=== PATIENT | male | born 1940 | race Caucasian/White ===

== ENCOUNTER 2017-09-20 06:52 | Day surgery (SDC) | payer MEDICARE, BC ==
[2017-09-20] MEDS ORDERED: Lactated Ringers 1,000 ML IV SCH (07:30)
[2017-09-20] MEDS ORDERED: fentaNYL 100 MCG/2 ML SDV ONE (08:16)
[2017-09-20] MEDS ORDERED: Propofol 200 MG/20 ML SDV ONE (08:16)
--- NOTE | 2017-09-20 12:18 | OR ---
DATE OF PROCEDURE: 09/20/2017 PREOPERATIVE DIAGNOSIS: History of colon polyps. POSTOPERATIVE DIAGNOSES: 1. Diverticulosis. 2. History of colon polyps. PROCEDURE: Colonoscopy to the cecum. SURGEON: Min Nolan MD. ANESTHESIA: IV anesthesia with monitored anesthesia care. INDICATION: This 77-year-old white male is here for a colonoscopy because of a history of colon polyps. He says his last colonoscopic exam was done about five years ago. I counseled him for the procedure, including risks and alternatives, and he gave his informed consent to proceed. DESCRIPTION OF PROCEDURE: The patient was placed in the left lateral decubitus position. IV anesthesia was administered by the Anesthesia Service. Time-out was held. A rectal exam was performed, which was unremarkable, except for no palpable prostate which he has had removed. The flexible video Olympus colonoscope was introduced through his anus , up his rectum and out his colon, all the way to the cecum. En route, we saw multiple, some quite large, left- sided diverticula. There were also a few rare one on the right side. Once the cecum was reached, the scope was slowly withdrawn, examining the mucosa throughout. No additional mucosal abnormalities were noted. No neoplastic lesions were seen. The scope was retroflexed in the rectum with the distal rectum appearing unremarkable. The scope was straightened and removed. He tolerated the procedure well. Recommend repeat colonoscopy in five years. Min Nolan MD /[id number] MTDD
== END 2017-09-20 10:30 | disposition home or self-care (01) ==
LOC: JP.SDS 06:52
PROVIDERS: ATTEND Surgery
DX: Z12.11 Encounter for screening for malignant neoplasm of colon (principal); K57.30 Diverticulosis of large intestine without perforation or abscess without bleeding; I10 Essential (primary) hypertension; E11.9 Type 2 diabetes mellitus without complications; E03.9 Hypothyroidism, unspecified; Z86.010 Personal history of colon polyps; Z87.891 Personal history of nicotine dependence
CPT/HCPCS: G0121; J2704; J3010; J7120

== ENCOUNTER 2019-02-22 10:22 | Emergency (ER) | payer MEDICARE, BC ==
[2019-02-22] MEDS ORDERED: Sodium Chloride 0.9% 1,000 ML IV STA (11:09)
[2019-02-22] MEDS ORDERED: Sodium Chloride 0.9% 10 ML Syringe FLUSH PRN (11:09)
--- NOTE | 2019-02-22 11:12 | EDM.PDOC ---
ED HPI GENERAL MEDICAL PROBLEM - General Chief Complaint: Genitourinary Problem Stated Complaint: BLOOD IN URINE Time Seen by Provider: 02/22/19 11:02 Source of Information: Reports: Patient, Family, RN Notes Reviewed History Limitations: Reports: No Limitations - History of Present Illness INITIAL COMMENTS - FREE TEXT/NARRATIVE: 8-year-old gentleman presents emergency department today complaint of bright red blood per urine, he states he has had microscopic hematuria in the past does have a follow-up appointment with urology at the end of this month does have a history of prostate cancer. This morning he started passing bright red blood with clots in his urine denies any other symptoms - Related Data Allergies Allergy/AdvReac Type Severity Reaction Status Date / Time No Known Allergies Allergy Verified 02/22/19 10:51 Home Meds: Home Meds Albuterol [Ventolin HFA] 1 - 2 puff IH Q4HR PRN 09/16/17 [History] Ammonium Lactate [Lac-Hydrin 12% Crm] 1 dose TOP BID 09/16/17 [History] Aspirin [Adult Low Dose Aspirin EC] 81 mg PO DAILY 09/16/17 [History] Calcium Carbonate [Calcium] 500 mg PO DAILY 09/16/17 [History] Cholecalciferol (Vitamin D3) [Vitamin D3] 2,000 units PO DAILY 09/16/17 [History ] Fluticasone Propionate [Flonase] 1 spray RANDY DAILY 09/16/17 [History] Glimepiride [Amaryl] 2 mg PO DAILY 09/16/17 [History] Glucosamine [Glucosamine Sulfate] 500 mg PO BID 09/16/17 [History] Levothyroxine [Synthroid] 50 mcg PO DAILY 09/16/17 [History] Losartan [Cozaar] 100 mg PO DAILY 09/16/17 [History] Multivitamin [Multi-Vitamin Daily] 1 cap PO DAILY 09/16/17 [History] Potassium Chloride 10 meq PO DAILY 09/16/17 [History] Simvastatin [Zocor] 20 mg PO DAILY 09/16/17 [History] amLODIPine [Norvasc] 5 mg PO DAILY 09/16/17 [History] hydroCHLOROthiazide [Hydrochlorothiazide] 25 mg PO BID 09/16/17 [History] metFORMIN [Glucophage] 500 mg PO BID 09/16/17 [History] Past Medical History HEENT History: Reports: Impaired Vision, Sinusitis Other HEENT History: wears glasses Cardiovascular History: Reports: Hypertension, SOB on Exertion Gastrointestinal History: Reports: Chronic Diarrhea, Colon Polyp Genitourinary History: Reports: Prostate Disorder, Urinary Incontinence, Other ( See Below) Other Genitourinary History: blood in urine Musculoskeletal History: Reports: Neck Pain, Chronic Endocrine/Metabolic History: Reports: Diabetes, Type II, Hypothyroidism Oncologic (Cancer) History: Reports: Basal Cell Carcinoma, Prostate Dermatologic History: Reports: None - Infectious Disease History Infectious Disease History: Reports: Chicken Pox, Measles, Mumps - Past Surgical History HEENT Surgical History: Reports: Polypectomy Cardiovascular Surgical History: Reports: None GI Surgical History: Reports: Cholecystectomy, Colonoscopy, Polypectomy Male Surgical History: Reports: Prostatectomy Endocrine Surgical History: Reports: None Musculoskeletal Surgical History: Reports: Shoulder Surgery, Other (See Below) Other Musculoskeletal Surgeries/Procedures:: neck fracture Oncologic Surgical History: Reports: Other (See Below) Other Oncologic Surgeries/Procedures: prostatectomy; skin biopsy/excision Dermatological Surgical History: Reports: Skin Biopsy Social & Family History - Family History Oncologic: Reports: Colon - Tobacco Use Smoking Status *Q: Former Smoker Used Tobacco, but Quit: Yes Month/Year Tobacco Last Used: 30 years - Caffeine Use Caffeine Use: Reports: Coffee - Recreational Drug Use Recreational Drug Use: No ED ROS GENERAL - Review of Systems Review Of Systems: See Below Constitutional: Reports: No Symptoms HEENT: Reports: No Symptoms Respiratory: Reports: No Symptoms Cardiovascular: Reports: No Symptoms GI/Abdominal: Reports: No Symptoms : Reports: Hematuria Musculoskeletal: Reports: No Symptoms Skin: Reports: No Symptoms Neurological: Reports: No Symptoms ED EXAM, RENAL/ - Physical Exam Exam: See Below Exam Limited By: No Limitations General Appearance: Alert, WD/WN, No Apparent Distress Respiratory/Chest: No Respiratory Distress, Lungs Clear, Normal Breath Sounds, No Accessory Muscle Use, Chest Non-Tender Cardiovascular: Regular Rate, Rhythm, No Murmur GI/Abdominal: Soft, Non-Tender Course - Vital Signs Last Recorded V/S: Last Vital Signs Temp 96.4 F 02/22/19 10:50 Pulse 67 02/22/19 10:50 Resp 14 02/22/19 10:50 BP 128/69 02/22/19 10:50 Pulse Ox 97 02/22/19 10:50 - Orders/Labs/Meds Orders: Active Orders 24 hr Category Date Time Status Peripheral IV Care [RC] . DIRECTED Care 02/22/19 11:10 Active Sodium Chloride 0.9% [Saline Flush] Med 02/22/19 11:09 Active 10 ml FLUSH ASDIRECTED PRN Peripheral IV Insertion Adult [OM.PC] Urgent Oth 02/22/19 11:09 Ordered Medication Orders Sodium Chloride (Saline Flush) 10 ml FLUSH ASDIRECTED PRN PRN Reason: Keep Vein Open Last Admin: 02/22/19 11:33 Dose: 10 ml Labs: Laboratory Tests 02/22/19 02/22/19 02/22/19 Range/Units 10:44 11:20 11:20 WBC 3.4 L (4.5-11.0) K/uL RBC 4.64 (4.30-5.90) M/uL Hgb 13.5 (12.0-15.0) g/dL Hct 41.6 (40.0-54.0) % MCV 90 (80-98) fL MCH 29 (27-31) pg MCHC 33 (32-36) % Plt Count 229 (150-400) K/uL Neut % (Auto) 56 (36-66) % Lymph % (Auto) 20 L (24-44) % Nelson % (Auto) 11 H (2-6) % Eos % (Auto) 12 H (2-4) % Baso % (Auto) 1 (0-1) % Sodium 140 (140-148) mmol/L Potassium 3.6 (3.6-5.2) mmol/L Chloride 101 (100-108) mmol/L Carbon Dioxide 28 (21-32) mmol/L Anion Gap 11.5 (5.0-14.0) mmol/L BUN 19 H (7-18) mg/dL Creatinine 0.9 (0.8-1.3) mg/dL Est Cr Clr Drug Dosing 79.54 mL/min Estimated GFR (MDRD) > 60 (>60) Glucose 154 H (74-106) mg/dL Calcium 8.9 (8.5-10.1) mg/dL Total Bilirubin 0.4 (0.2-1.0) mg/dL AST 16 (15-37) U/L ALT 28 (12-78) U/L Alkaline Phosphatase 74 (46-116) U/L Total Protein 6.8 (6.4-8.2) g/dL Albumin 3.4 (3.4-5.0) g/dL Globulin 3.4 (2.3-3.5) g/dL Albumin/Globulin Ratio 1.0 L (1.2-2.2) Urine Color Yellow (YELLOW) Urine Appearance Clear (CLEAR) Urine pH 6.0 (5.0-8.0) Ur Specific [place] 1.020 (1.008-1.030) Urine Protein Negative (NEGATIVE) mg/dL Urine Glucose (UA) Negative (NEGATIVE) mg/dL Urine Ketones Negative (NEGATIVE) mg/dL Urine Occult Blood Moderate H (NEGATIVE) Urine Nitrite Negative (NEGATIVE) Urine Bilirubin Negative (NEGATIVE) Urine Urobilinogen 0.2 (0.2-1.0) EU/dL Ur Leukocyte Esterase Negative (NEGATIVE) Urine RBC 30-40 H (0-5) Urine WBC Not seen (0-5) Ur Epithelial Cells Not seen Amorphous Sediment Not seen Urine Bacteria Not seen Urine Mucus Not seen Meds: Medications Generic Name Dose Route Start Last Admin Trade Name Freq PRN Reason Stop Dose Admin Sodium Chloride 10 ml 02/22/19 11:09 02/22/19 11:33 Saline Flush FLUSH 10 ml ASDIRECTED PRN Administration Keep Vein Open Discontinued Medications Generic Name Dose Route Start Last Admin Trade Name Freq PRN Reason Stop Dose Admin Sodium Chloride 1,000 mls @ 500 mls/hr 02/22/19 11:09 02/22/19 11:31 Normal Saline IV 02/22/19 13:08 500 mls/hr .BOLUS STA Administration Sodium Chloride 89 mls @ 3.5 mls/sec 02/22/19 11:47 02/22/19 11:56 Normal Saline IV 02/22/19 11:48 3.5 mls/sec ONETIME ONE Administration Iopamidol 150 ml 02/22/19 11:47 02/22/19 11:56 Isovue-300 (61%) IV 02/22/19 11:48 150 ml ONETIME ONE Administration Departure - Departure Time of Disposition: 13:18 Disposition: Home, Self-Care 01 Condition: Poor Clinical Impression: Hematuria syndrome, 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 - Discharge Information Referrals: Alex Ye MD [Primary Care Provider] - Forms: ED Department Discharge Additional Instructions: Please keep your follow-up appointment with your oncologist tomorrow as well as your consultation with urology, call or return to the emergency department worsening of symptoms Sepsis Event Note - Evaluation Sepsis Screening Result: No Definite Risk - Focused Exam Vital Signs: Vital Signs Temp Pulse Resp BP Pulse Ox 02/22/19 10:50 96.4 F 67 14 128/69 97 02/22/19 10:40 96.4 F 67 14 128/69 97 Date Exam was Performed: 02/22/19 Time Exam was Performed: 13:16 - My Orders Last 24 Hours: My Active Orders 02/22/19 11:09 Sodium Chloride 0.9% [Saline Flush] 10 ml FLUSH ASDIRECTED PRN Peripheral IV Insertion Adult [OM.PC] Urgent 02/22/19 11:10 Peripheral IV Care [RC] . DIRECTED - Assessment/Plan Last 24 Hours: My Active Orders 02/22/19 11:09 Sodium Chloride 0.9% [Saline Flush] 10 ml FLUSH ASDIRECTED PRN Peripheral IV Insertion Adult [OM.PC] Urgent 02/22/19 11:10 Peripheral IV Care [RC] . DIRECTED Plan: Assessment Acuity = acute Site and laterality = hematuria, lytic lesions lumbar spine complicated patient with known history of prostate cancer Etiology = possibly related to bladder wall thickening, concern for malignancy or melanoma with lytic lesions Manifestations = none Location of injury = Home Lab values = WBC low at 3.4 consistent leukopenia urinalysis reveals 30-40 WBCs consistent with a hematuria CT scan describes a lytic lesions in the bladder wall thickening above Plan I did review lab work CT scan results with him also gave him a copy of his CT scan result he does have follow-up appointment with his oncologist tomorrow and a consultation with urology at the end of the month This note was dictated using [employer] voice recognition software please call with any questions on syntax or grammar.
[2019-02-22] MEDS ORDERED: Iopamidol 500 ML BOTTLE IV ONE (11:47)
--- NOTE | 2019-02-22 12:53 | CRLCT ---
INDICATION: Hematuria COMPARISON: There are no prior studies for comparison TECHNIQUE: CT examination of the abdomen and pelvis was performed with and without the uneventful intravenous administration of 150 cc of Omnipaque 350 while 3 mm thick axial sections were obtained from the lung bases through the pubic symphysis. Oral contrast was not administered. Sagittal and coronal reformatted imaging was performed. Please note that all CT scans at this facility use dose modulation, iterative reconstruction, and/or weight-based dosing when appropriate to reduce radiation dose to as low as reasonably achievable. FINDINGS: Linear opacities at the lung bases are likely atelectatic or fibrotic. The heart size is normal and the lung bases. There is a small hiatal hernia. The liver is normal in size and configuration. A low-density lesion in the right lobe is identified. This measures 1.6 centimeters and is consistent with a cyst. Adrenal glands, spleen and pancreas show no significant appearing positive findings. The gallbladder is absent URINARY SYSTEM: The noncontrast images of the kidneys reveal no density left renal lesions but no calculus or evidence of current or recent obstructive uropathy. There is an 8 millimeter high-density lesion in the left kidney which is probably a hyperdense cyst seen on noncontrast image 48. Following contrast administration, there is no enhancement to suggest a solid lesion. There are 2 cysts on the left. An upper pole cyst measures 4.4 centimeters and a lower pole cyst measures 2.4 centimeters. On the delayed imaging, there is no filling defect identified within the upper tracts. There is bladder wall thickening without focal lesion. This is usually due to chronic cystitis or outlet obstruction. There appears to have been a prostatectomy or TURP The osseous structures are abnormal. Best appreciated on the sagittal imaging is a suggestion of multiple lytic lucencies which could be related to metastatic disease or myeloma. There are severe degenerative changes also noted IMPRESSION: 1. Scattered lytic lucencies in the skeleton worrisome for metastatic disease or myeloma. Further evaluation is advised. 2. Left renal lesions consistent with cysts. There is also 1 small subcentimeter lesion that likely represents a hyperdense cyst. No visible solid mass or filling defect related to the urothelial surfaces. 3. Bladder wall thickening likely due to either chronic inflammation or chronic bladder outlet obstruction Please note that all CT scans at this facility use dose modulation, iterative reconstruction, and/or weight-based dosing when appropriate to reduce radiation dose to as low as reasonably achievable. Dictated by Raji Sharif MD @ Feb 22 2019 12:40PM Signed by Dr. Raji Sharif @ Feb 22 2019 12:51PM
== END 2019-02-22 13:55 | disposition home or self-care (01) ==
LOC: JP.ED 10:22
DX: R31.9 Hematuria, unspecified (principal); M89.9 Disorder of bone, unspecified; I10 Essential (primary) hypertension; E03.9 Hypothyroidism, unspecified; E11.9 Type 2 diabetes mellitus without complications; Z79.84 Long term (current) use of oral hypoglycemic drugs; Z79.899 Other long term (current) drug therapy; Z79.82 Long term (current) use of aspirin
CPT/HCPCS: 36415; 74178; 80053; 81001; 85025; 96360; 96361; 99284; J7030; J7050; Q9967

== ENCOUNTER 2019-09-01 11:26 | Emergency (ER) | payer MEDICARE, BC | END 2019-09-01 12:13 | disposition left against medical advice (07) | LOC: JP.ED 11:26 | DX: Z53.21 Procedure and treatment not carried out due to patient leaving prior to being seen by health care provider (principal) ==

== ENCOUNTER 2019-11-11 21:04 | Observation (INO) | payer MEDICARE, BC ==
[2019-11-11] MEDS ORDERED: Sodium Chloride 0.9% 10 ML Syringe FLUSH PRN (21:18)
--- NOTE | 2019-11-11 21:48 | EDM.PDOC ---
ED HPI GENERAL MEDICAL PROBLEM - General Chief Complaint: Abdominal Pain Stated Complaint: [facility] Time Seen by Provider: 11/11/19 21:30 Source of Information: Reports: Patient, Old Records, RN History Limitations: Reports: No Limitations - History of Present Illness INITIAL COMMENTS - FREE TEXT/NARRATIVE: 79 yo male presents from his home via EMS for weakness and LLQ abdominal pain. Sx's began this morning. Has a pHx of diverticulitis, and this feels like that. 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 Has chronic urinary incontinence since a TURP. Onset: Today, Gradual Onset Date: 11/11/19 Duration: Hour(s):, Getting Worse Location: Reports: Abdomen (LLQ pain), Generalized (weakness) Quality: Reports: Ache Severity: Moderate Improves with: Reports: Rest Worsens with: Reports: Movement Context: Reports: Other (See HPI) Associated Symptoms: Reports: Fever/Chills. 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: Other (see below) (none) Left Lower Abdomen Pain Score (Numeric/FACES): 5 - Related Data Allergies Allergy/AdvReac Type Severity Reaction Status Date / Time No Known Allergies Allergy Verified 11/11/19 21:18 Home Meds: Home Meds Albuterol [Ventolin HFA] 1 - 2 puff IH Q4HR PRN 09/16/17 [History] Ammonium Lactate [Lac-Hydrin 12% Crm] 1 dose TOP BID 09/16/17 [History] Aspirin [Adult Low Dose Aspirin EC] 81 mg PO BEDTIME 09/16/17 [History] Calcium Carbonate [Calcium] 500 mg PO DAILY 09/16/17 [History] Cholecalciferol (Vitamin D3) [Vitamin D3] 2,000 units PO DAILY 09/16/17 [History] Fluticasone Propionate [Flonase] 2 spray RANDY DAILY 09/16/17 [History] Glimepiride [Amaryl] 2 mg PO DAILY 09/16/17 [History] Glucosamine [Glucosamine Sulfate] 500 mg PO BID 09/16/17 [History] Levothyroxine [Synthroid] 50 mcg PO DAILY 09/16/17 [History] Losartan [Cozaar] 100 mg PO DAILY 09/16/17 [History] Multivitamin [Multi-Vitamin Daily] 1 cap PO DAILY 09/16/17 [History] Simvastatin [Zocor] 20 mg PO DAILY 09/16/17 [History] amLODIPine [Norvasc] 5 mg PO BEDTIME 09/16/17 [History] hydroCHLOROthiazide [Hydrochlorothiazide] 25 mg PO BID 09/16/17 [History] metFORMIN [Glucophage] 500 mg PO BID 09/16/17 [History] Acyclovir 400 mg PO BID 11/11/19 [History] Lenalidomide [Revlimid] 25 mg PO DAILY 11/11/19 [History] Oxybutynin Chloride [Oxybutynin Chloride ER] 10 mg PO DAILY 11/11/19 [History] Potassium Chloride [Klor-Con 10] 10 meq PO DAILY 11/11/19 [History] Sulfamethoxazole/Trimethoprim [Bactrim 400-80 MG] 1 tab PO ASDIRECTED 11/11/19 [History] Warfarin [Coumadin] 10 mg PO DAILY 11/11/19 [History] Past Medical History HEENT History: Reports: Impaired Vision, Sinusitis Other HEENT History: wears glasses Cardiovascular History: Reports: Hypertension, SOB on Exertion, Other (See Below) Other Cardiovascular History: blood clot behind r knee. Gastrointestinal History: Reports: Chronic Diarrhea, Colon Polyp Genitourinary History: Reports: Prostate Disorder, Urinary Incontinence, Other (See Below) Other Genitourinary History: blood in urine No bladder control Musculoskeletal History: Reports: Neck Pain, Chronic Psychiatric History: Reports: Depression Endocrine/Metabolic History: Reports: Diabetes, Type II, Hypothyroidism Oncologic (Cancer) History: Reports: Basal Cell Carcinoma, Prostate Dermatologic History: Reports: None - Infectious Disease History Infectious Disease History: Reports: Chicken Pox, Measles, Mumps - Past Surgical History HEENT Surgical History: Reports: Polypectomy Cardiovascular Surgical History: Reports: None GI Surgical History: Reports: Cholecystectomy, Colonoscopy, Polypectomy Male Surgical History: Reports: Prostatectomy, Other (See Below) Other Male Surgeries/Procedures: Bladder scraping BCG procedure. Endocrine Surgical History: Reports: None Musculoskeletal Surgical History: Reports: Shoulder Surgery, Other (See Below) Other Musculoskeletal Surgeries/Procedures:: neck fracture Oncologic Surgical History: Reports: Other (See Below) Other Oncologic Surgeries/Procedures: prostatectomy; skin biopsy/excision Dermatological Surgical History: Reports: Skin Biopsy Social & Family History - Family History Oncologic: Reports: Colon - Tobacco Use Smoking Status *Q: Former Smoker Years of Tobacco use: 40 Packs/Tins Daily: 1 Used Tobacco, but Quit: Yes Month/Year Tobacco Last Used: 40 years ago Second Hand Smoke Exposure: No - Caffeine Use Caffeine Use: Reports: Soda - Alcohol Use Days Per Week of Alcohol Use: 0 - Recreational Drug Use Recreational Drug Use: No ED ROS GENERAL - Review of Systems Review Of Systems: See Below Constitutional: Reports: No Symptoms HEENT: Reports: No Symptoms Respiratory: Reports: No Symptoms Cardiovascular: Reports: No Symptoms Endocrine: Reports: No Symptoms GI/Abdominal: Reports: Abdominal Pain : Reports: Incontinence (chronic) Skin: Reports: No Symptoms Neurological: Reports: No Symptoms ED EXAM, GI/ABD - Physical Exam Exam: See Below Exam Limited By: No Limitations General Appearance: Alert, WD/WN, No Apparent Distress Eyes: Bilateral: Normal Appearance Ears: Normal External Exam, Normal Canal, Hearing Grossly Normal Nose: Normal Inspection, No Blood Throat/Mouth: Normal Inspection, Normal Lips, Normal Oropharynx, Normal Voice, No Airway Compromise Head: Atraumatic, Normocephalic Neck: Normal Inspection Respiratory/Chest: No Respiratory Distress, Lungs Clear, Normal Breath Sounds, No Accessory Muscle Use Cardiovascular: Regular Rate, Rhythm, No Edema GI/Abdominal Exam: Soft, No Distention, Guarding, Rebound, Tender (LLQ), Abnormal Bowel Sounds (decreased). No: Normal Bowel Sounds, Non-Tender, Dist ended, Rigid Back Exam: Normal Inspection. No: CVA Tenderness (R), CVA Tenderness (L) Extremities: Normal Inspection, Normal Range of Motion, Non-Tender, No Pedal Edema Neurological: Alert, Oriented, CN II-XII Intact, Normal Cognition, No Motor/Sensory Deficits Psychiatric: Normal Affect, Normal Mood Skin Exam: Warm, Dry, Intact, Normal Color, No Rash Course - Vital Signs Text/Narrative:: Dr. Maciel paged @0028h Last Recorded V/S: Last Vital Signs Temp 37.2 C 11/11/19 23:20 Pulse 69 11/11/19 23:20 Resp 16 11/11/19 23:20 BP 123/56 L 11/11/19 23:20 Pulse Ox 95 11/11/19 23:20 - Orders/Labs/Meds Orders: Active Orders 24 hr Category Date Time Status CULTURE BLOOD [BC] Stat Lab 11/11/19 22:05 Received CULTURE BLOOD [BC] Stat Lab 11/11/19 22:15 Received NS + KCl 20mEq/L [Normal Saline with 20 mEq KCl] 1,000 Med 11/11/19 22:00 Active ml IV ASDIRECTED Sodium Chloride 0.9% [Normal Saline] 100 ml Med 11/11/19 23:15 Active IV ASDIRECTED Sodium Chloride 0.9% [Saline Flush] Med 11/11/19 21:18 Active 10 ml FLUSH ASDIRECTED PRN Saline Lock Insert [OM.PC] Routine Oth 11/11/19 21:18 Ordered Medication Orders Potassium Chloride/Sodium Chloride (Normal Saline With 20 Meq Kcl) 1,000 mls @ 500 mls/hr IV ASDIRECTED TREVOR Last Admin: 11/11/19 22:04 Dose: 500 mls/hr Documented by: MAYRA Sodium Chloride (Normal Saline) 100 mls @ 3 mls/sec IV ASDIRECTED TREVOR Last Admin: 11/11/19 23:55 Dose: 3 mls/sec Documented by: CORINNA Sodium Chloride (Saline Flush) 10 ml FLUSH ASDIRECTED PRN PRN Reason: Keep Vein Open Labs: Laboratory Tests 11/11/19 11/11/19 11/11/19 Range/Units 21:18 21:35 21:35 WBC 10.9 (4.5-11.0) K/uL RBC 4.30 (4.30-5.90) M/uL Hgb 12.2 (12.0-15.0) g/dL Hct 37.5 L (40.0-54.0) % MCV 87 (80-98) fL MCH 28 (27-31) pg MCHC 33 (32-36) % Plt Count 206 (150-400) K/uL PT (9.5-12.0) sec INR (0.80-1.20) Sodium 136 L (140-148) mmol/L Potassium 3.4 L (3.6-5.2) mmol/L Chloride 99 L (100-108) mmol/L Carbon Dioxide 24 (21-32) mmol/L Anion Gap 16.4 H (5.0-14.0) mmol/L BUN 20 H (7-18) mg/dL Creatinine 1.5 H D (0.8-1.3) mg/dL Est Cr Clr Drug Dosing 48.22 mL/min Estimated GFR (MDRD) 45 L (>60) Glucose 197 H (74-106) mg/dL Lactic Acid 2.3 H (0.4-2.0) mmol/L Calcium 8.3 L (8.5-10.1) mg/dL Urine Color (YELLOW) Urine Appearance (CLEAR) Urine pH (5.0-8.0) Ur Specific [place] (1.008-1.030) Urine Protein (NEGATIVE) mg/dL Urine Glucose (UA) (NEGATIVE) mg/dL Urine Ketones (NEGATIVE) mg/dL Urine Occult Blood (NEGATIVE) Urine Nitrite (NEGATIVE) Urine Bilirubin (NEGATIVE) Urine Urobilinogen (0.2-1.0) EU/dL Ur Leukocyte Esterase (NEGATIVE) Urine RBC (0-5) Urine WBC (0-5) Ur Epithelial Cells Amorphous Sediment Urine Bacteria Urine Mucus 11/11/19 11/12/19 Range/Units 23:12 00:52 WBC (4.5-11.0) K/uL RBC (4.30-5.90) M/uL Hgb (12.0-15.0) g/dL Hct (40.0-54.0) % MCV (80-98) fL MCH (27-31) pg MCHC (32-36) % Plt Count (150-400) K/uL PT 21.1 H (9.5-12.0) sec INR 1.96 H (0.80-1.20) Sodium (140-148) mmol/L Potassium (3.6-5.2) mmol/L Chloride (100-108) mmol/L Carbon Dioxide (21-32) mmol/L Anion Gap (5.0-14.0) mmol/L BUN (7-18) mg/dL Creatinine (0.8-1.3) mg/dL Est Cr Clr Drug Dosing mL/min Estimated GFR (MDRD) (>60) Glucose (74-106) mg/dL Lactic Acid (0.4-2.0) mmol/L Calcium (8.5-10.1) mg/dL Urine Color Circle A (YELLOW) Urine Appearance Clear (CLEAR) Urine pH 5.5 (5.0-8.0) Ur Specific [place] 1.025 (1.008-1.030) Urine Protein 100 H (NEGATIVE) mg/dL Urine Glucose (UA) Negative (NEGATIVE) mg/dL Urine Ketones Trace H (NEGATIVE) mg/dL Urine Occult Blood Trace-intact H (NEGATIVE) Urine Nitrite Positive H (NEGATIVE) Urine Bilirubin Moderate H (NEGATIVE) Urine Urobilinogen 1.0 (0.2-1.0) EU/dL Ur Leukocyte Esterase Negative (NEGATIVE) Urine RBC 0-5 (0-5) Urine WBC 0-5 (0-5) Ur Epithelial Cells Few Amorphous Sediment Few Urine Bacteria Many Urine Mucus Moderate Meds: Medications Generic Name Dose Route Start Last Admin Trade Name Freq PRN Reason Stop Dose Admin Potassium Chloride/Sodium Chloride 1,000 mls @ 500 mls/hr 11/11/19 22:00 11/11/19 22:04 Normal Saline With 20 Meq Kcl IV 500 mls/hr ASDIRECTED TREVOR Administration Sodium Chloride 100 mls @ 3 mls/sec 11/11/19 23:15 11/11/19 23:55 Normal Saline IV 3 mls/sec ASDIRECTED TREVOR Administration Sodium Chloride 10 ml 11/11/19 21:18 Saline Flush FLUSH ASDIRECTED PRN Keep Vein Open Discontinued Medications Generic Name Dose Route Start Last Admin Trade Name Freq PRN Reason Stop Dose Admin Ampicillin Sodium/Sulbactam 50 mls @ 100 mls/hr 11/11/19 22:00 11/11/19 22:18 Sodium 1.5 gm/ Sodium Chloride IV 11/11/19 22:29 100 mls/hr ONETIME ONE Administration Iopamidol 100 ml 11/11/19 23:02 11/11/19 23:57 Isovue-300 (61%) IV 11/11/19 23:03 100 ml ONETIME ONE Administration Sodium Chloride 10 ml 11/11/19 23:02 11/11/19 23:50 Saline Flush FLUSH 11/11/19 23:03 10 ml ONETIME ONE Administration - Radiology Interpretation Free Text/Narrative:: CT abd/pelvis with IV contrast-IMPRESSION: Thickening of the junction of the descending and sigmoid colon with adjacent inflammatory stranding consistent with diverticulitis. Dictated by Denilson Craig MD @ 11/12/2019 12:24:[address] Results Date: 11/11/19 CT Results Time: 00:27 Departure - Departure Time of Disposition: 00:45 Disposition: Refer to Observation Condition: Fair Clinical Impression: Acute diverticulitis - Discharge Information *PRESCRIPTION DRUG MONITORING PROGRAM REVIEWED*: Not Applicable *COPY OF PRESCRIPTION DRUG MONITORING REPORT IN PATIENT DEEPTI: Not Applicable Referrals: PCP,None [Primary Care Provider] - Forms: ED Department Discharge Sepsis Event Note (ED) - Evaluation Sepsis Screening Result: No Definite Risk - Focused Exam Vital Signs: Vital Signs Temp Pulse Resp BP Pulse Ox 11/11/19 23:20 37.2 C 69 16 123/56 L 95 11/11/19 23:05 37.2 C 66 16 105/50 L 94 L 11/11/19 21:13 37.1 C 98 16 120/95 H 95 - My Orders Last 24 Hours: My Active Orders 11/11/19 21:18 Sodium Chloride 0.9% [Saline Flush] 10 ml FLUSH ASDIRECTED PRN Saline Lock Insert [OM.PC] Routine 11/11/19 22:00 NS + KCl 20mEq/L [Normal Saline with 20 mEq KCl] 1,000 ml IV ASDIRECTED 11/11/19 22:05 CULTURE BLOOD [BC] Stat 11/11/19 22:15 CULTURE BLOOD [BC] Stat 11/11/19 23:15 Sodium Chloride 0.9% [Normal Saline] 100 ml IV ASDIRECTED - Assessment/Plan Last 24 Hours: My Active Orders 11/11/19 21:18 Sodium Chloride 0.9% [Saline Flush] 10 ml FLUSH ASDIRECTED PRN Saline Lock Insert [OM.PC] Routine 11/11/19 22:00 NS + KCl 20mEq/L [Normal Saline with 20 mEq KCl] 1,000 ml IV ASDIRECTED 11/11/19 22:05 CULTURE BLOOD [BC] Stat 11/11/19 22:15 CULTURE BLOOD [BC] Stat 11/11/19 23:15 Sodium Chloride 0.9% [Normal Saline] 100 ml IV ASDIRECTED
[2019-11-11] MEDS ORDERED: Ampicillin/Sulbactam Na 1.5 GM in Sodium Chloride 0.9% 50 ML IV ONE (22:00)
[2019-11-11] MEDS ORDERED: NS + KCl 20mEq/L 1,000 ML IV SCH (22:00)
[2019-11-11] MEDS ORDERED: Iopamidol 612 MG/ML 500 ML Multipack Bottle IV ONE (23:02)
[2019-11-11] MEDS ORDERED: Sodium Chloride 0.9% 10 ML Syringe FLUSH ONE (23:02)
[2019-11-11] MEDS ORDERED: Sodium Chloride 0.9% 100 ML IV SCH (23:15)
--- NOTE | 2019-11-12 00:25 | CRLCT ---
INDICATION: Left lower quadrant pain, history of diverticulitis TECHNIQUE: CT abdomen and pelvis acquired with IV contrast. 100 cc Isovue-300 COMPARISON: 02/18/2019 FINDINGS: Lower chest: Unremarkable. Liver: Stable 1.0 centimeter cyst right lobe of the liver. Spleen: Unremarkable. Pancreas: Unremarkable. Cholecystectomy. Unremarkable. Kidneys: Stable left renal cyst. Adrenal glands: Unremarkable. GI tract: Thickening of the junction of the descending and sigmoid colon with adjacent inflammatory stranding consistent with diverticulitis. Diffuse colonic fecal retention. Vascular structures: Unremarkable. Lymph nodes: Unremarkable. Miscellaneous: Unremarkable. No free air or significant free fluid. Pelvic Organs: Unremarkable. Bones: Stable skeletal lucencies.. IMPRESSION: Thickening of the junction of the descending and sigmoid colon with adjacent inflammatory stranding consistent with diverticulitis. Dictated by Denilson Cragi MD @ 11/12/2019 12:24:28 AM Please note that all CT scans at this facility use dose modulation, iterative reconstruction, and/or weight-based dosing when appropriate to reduce radiation dose to as low as reasonably achievable. Dictated by: Denilson Craig MD @ 11/12/2019 00:25:00 (Electronically Signed)
--- NOTE | 2019-11-12 02:01 | PCM.HP.2 ---
H&P History of Present Illness - General Date of Service: 11/12/19 Admit Problem/Dx: Admission Diagnosis/Problem Admission Diagnosis/Problem Diverticulitis Source of Information: Patient, Provider History Limitations: Reports: No Limitations - History of Present Illness Initial Comments - Free Text/Narative: CC: I was so weak HPI: Maxwell presents to the emergency room today with weakness, left lower quadrant abdominal pain and mild confusion. He reports that he first noticed some chills just over 24 hours before presentation. This was on Wednesday night. Wednesday morning, the morning before presentation he developed a temperature to 100.4. As the day progressed he developed initially mild and then moderate sharp left lower quadrant pain. The pain radiated throughout the left side of the abdomen and was worse anytime he tried to twist or if he bumped the left si de of his abdomen. Pain was better when he laid on his back. Pain has slowly been getting worse. This afternoon he was so weak he had trouble getting out of the recliner. He was confused about time and thought it was 7:00 in the morning rather than 7:00 at night. He does not report nausea. He did not have an appetite yesterday and has not had anything to eat since yesterday morning. There has been no change in his bowel movements. No change in bladder habits and he does have chronic incontinence. No complaints of shortness of breath. No obvious sick contacts. No new medications. He does have a history of diverticulitis and this feels similar. Work-up in the emergency room revealed mild hypokalemia and stable kidney disease. White count is normal. CT scan of the abdomen and pelvis did show an area of diverticulitis in the left lower quadrant. He has been started on IV antibiotics and will be admitted for further management. Left Lower Abdomen Pain Score (Numeric/FACES): 5 - Related Data Allergies/Adverse Reactions: Allergies Allergy/AdvReac Type Severity Reaction Status Date / Time No Known Allergies Allergy Verified 11/11/19 21:18 Home Medications: Home Meds Albuterol [Ventolin HFA] 1 - 2 puff IH Q4HR PRN 09/16/17 [History] Ammonium Lactate [Lac-Hydrin 12% Crm] 1 dose TOP BID 09/16/17 [History] Aspirin [Adult Low Dose Aspirin EC] 81 mg PO BEDTIME 09/16/17 [History] Calcium Carbonate [Calcium] 500 mg PO DAILY 09/16/17 [History] Cholecalciferol (Vitamin D3) [Vitamin D3] 2,000 units PO DAILY 09/16/17 [History] Fluticasone Propionate [Flonase] 2 spray RANDY DAILY 09/16/17 [History] Glimepiride [Amaryl] 2 mg PO DAILY 09/16/17 [History] Glucosamine [Glucosamine Sulfate] 500 mg PO BID 09/16/17 [History] Levothyroxine [Synthroid] 50 mcg PO DAILY 09/16/17 [History] Losartan [Cozaar] 100 mg PO DAILY 09/16/17 [History] Multivitamin [Multi-Vitamin Daily] 1 cap PO DAILY 09/16/17 [History] Simvastatin [Zocor] 20 mg PO DAILY 09/16/17 [History] amLODIPine [Norvasc] 5 mg PO BEDTIME 09/16/17 [History] hydroCHLOROthiazide [Hydrochlorothiazide] 25 mg PO BID 09/16/17 [History] metFORMIN [Glucophage] 500 mg PO BID 09/16/17 [History] Acyclovir 400 mg PO BID 11/11/19 [History] Lenalidomide [Revlimid] 25 mg PO DAILY 11/11/19 [History] Oxybutynin Chloride [Oxybutynin Chloride ER] 10 mg PO DAILY 11/11/19 [History] Potassium Chloride [Klor-Con 10] 10 meq PO DAILY 11/11/19 [History] Sulfamethoxazole/Trimethoprim [Bactrim 400-80 MG] 1 tab PO ASDIRECTED 11/11/19 [ History] Warfarin [Coumadin] 10 mg PO DAILY 11/11/19 [History] Past Medical History HEENT History: Reports: Impaired Vision, Sinusitis Other HEENT History: wears glasses Cardiovascular History: Reports: Hypertension, SOB on Exertion, Other (See Below) Other Cardiovascular History: blood clot behind r knee. Gastrointestinal History: Reports: Chronic Diarrhea, Colon Polyp Genitourinary History: Reports: Prostate Disorder, Urinary Incontinence, Other (See Below) Other Genitourinary History: blood in urine No bladder control Musculoskeletal History: Reports: Neck Pain, Chronic Psychiatric History: Reports: Depression Endocrine/Metabolic History: Reports: Diabetes, Type II, Hypothyroidism Oncologic (Cancer) History: Reports: Basal Cell Carcinoma, Prostate Dermatologic History: Reports: None - Infectious Disease History Infectious Disease History: Reports: Chicken Pox, Measles, Mumps - Past Surgical History HEENT Surgical History: Reports: Polypectomy Cardiovascular Surgical History: Reports: None GI Surgical History: Reports: Cholecystectomy, Colonoscopy, Polypectomy Male Surgical History: Reports: Prostatectomy, Other (See Below) Other Male Surgeries/Procedures: Bladder scraping BCG procedure. Endocrine Surgical History: Reports: None Musculoskeletal Surgical History: Reports: Shoulder Surgery, Other (See Below) Other Musculoskeletal Surgeries/Procedures:: neck fracture Oncologic Surgical History: Reports: Other (See Below) Other Oncologic Surgeries/Procedures: prostatectomy; skin biopsy/excision Dermatological Surgical History: Reports: Skin Biopsy Social & Family History - Family History Oncologic: Reports: Colon (Father in his 60s) - Tobacco Use Smoking Status *Q: Former Smoker Years of Tobacco use: 40 Packs/Tins Daily: 1 Used Tobacco, but Quit: Yes Month/Year Tobacco Last Used: 40 years ago Second Hand Smoke Exposure: No - Caffeine Use Caffeine Use: Reports: Soda - Alcohol Use Days Per Week of Alcohol Use: 0 - Recreational Drug Use Recreational Drug Use: No H&P Review of Systems - Review of Systems: Review Of Systems: See Below Free Text/Narrative: A complete 12 point review of systems was obtained. Pertinent positives and negatives are noted in the history of present illness. All other systems were reviewed and were negative except as noted. Exam - Exam Exam: See Below - Vital Signs Vital Signs: Last Vital Signs Temp 37.2 C 11/11/19 23:20 Pulse 69 11/11/19 23:20 Resp 16 11/11/19 23:20 BP 123/56 L 11/11/19 23:20 Pulse Ox 95 11/11/19 23:20 Weight: 104.326 kg - Exam Quality Assessment: No: Supplemental Oxygen General: Alert, Oriented, Cooperative. No: Mild Distress HEENT: Conjunctiva Clear. No: Mucosa Moist & [place] (Dry), Scleral Icterus Neck: Supple, Trachea Midline Lungs: Clear to Auscultation, Normal Respiratory Effort Cardiovascular: Regular Rate, Regular Rhythm. No: Systolic Murmur GI/Abdominal Exam: Normal Bowel Sounds, Soft, No Distention, Guarding (Mild), Tender (Moderate tenderness left side of the abdomen especially in the lower half) Extremities: No Pedal Edema. No: Joint Swelling, Increased Warmth Peripheral Pulses: 1+: Dorsalis Pedis (L), Dorsalis Pedis (R) Skin: Warm, Dry Neuro Extensive - Mental Status: Alert, Oriented x3, Nl Response to Commands Neuro Extensive - Motor, Sensory, Reflexes: No: Dysarthria, Abnormal Motor, Tremor Psychiatric: Alert, Normal Affect - Patient Data Lab Results Last 24 hrs: Laboratory Results - last 24 hr 11/11/19 11/11/19 11/11/19 Range/Units 21:18 21:35 21:35 WBC 10.9 (4.5-11.0) K/uL RBC 4.30 (4.30-5.90) M/uL Hgb 12.2 (12.0-15.0) g/dL Hct 37.5 L (40.0-54.0) % MCV 87 (80-98) fL MCH 28 (27-31) pg MCHC 33 (32-36) % Plt Count 206 (150-400) K/uL PT (9.5-12.0) sec INR (0.80-1.20) Sodium 136 L (140-148) mmol/L Potassium 3.4 L (3.6-5.2) mmol/L Chloride 99 L (100-108) mmol/L Carbon Dioxide 24 (21-32) mmol/L Anion Gap 16.4 H (5.0-14.0) mmol/L BUN 20 H (7-18) mg/dL Creatinine 1.5 H D (0.8-1.3) mg/dL Est Cr Clr Drug Dosing 48.22 mL/min Estimated GFR (MDRD) 45 L (>60) Glucose 197 H (74-106) mg/dL Lactic Acid 2.3 H (0.4-2.0) mmol/L Calcium 8.3 L (8.5-10.1) mg/dL Urine Color (YELLOW) Urine Appearance (CLEAR) Urine pH (5.0-8.0) Ur Specific [place] (1.008-1.030) Urine Protein (NEGATIVE) mg/dL Urine Glucose (UA) (NEGATIVE) mg/dL Urine Ketones (NEGATIVE) mg/dL Urine Occult Blood (NEGATIVE) Urine Nitrite (NEGATIVE) Urine Bilirubin (NEGATIVE) Urine Urobilinogen (0.2-1.0) EU/dL Ur Leukocyte Esterase (NEGATIVE) Urine RBC (0-5) Urine WBC (0-5) Ur Epithelial Cells Amorphous Sediment Urine Bacteria Urine Mucus 11/11/19 11/12/19 Range/Units 23:12 00:52 WBC (4.5-11.0) K/uL RBC (4.30-5.90) M/uL Hgb (12.0-15.0) g/dL Hct (40.0-54.0) % MCV (80-98) fL MCH (27-31) pg MCHC (32-36) % Plt Count (150-400) K/uL PT 21.1 H (9.5-12.0) sec INR 1.96 H (0.80-1.20) Sodium (140-148) mmol/L Potassium (3.6-5.2) mmol/L Chloride (100-108) mmol/L Carbon Dioxide (21-32) mmol/L Anion Gap (5.0-14.0) mmol/L BUN (7-18) mg/dL Creatinine (0.8-1.3) mg/dL Est Cr Clr Drug Dosing mL/min Estimated GFR (MDRD) (>60) Glucose (74-106) mg/dL Lactic Acid (0.4-2.0) mmol/L Calcium (8.5-10.1) mg/dL Urine Color [place] A (YELLOW) Urine Appearance Clear (CLEAR) Urine pH 5.5 (5.0-8.0) Ur Specific [place] 1.025 (1.008-1.030) Urine Protein 100 H (NEGATIVE) mg/dL Urine Glucose (UA) Negative (NEGATIVE) mg/dL Urine Ketones Trace H (NEGATIVE) mg/dL Urine Occult Blood Trace-intact H (NEGATIVE) Urine Nitrite Positive H (NEGATIVE) Urine Bilirubin Moderate H (NEGATIVE) Urine Urobilinogen 1.0 (0.2-1.0) EU/dL Ur Leukocyte Esterase Negative (NEGATIVE) Urine RBC 0-5 (0-5) Urine WBC 0-5 (0-5) Ur Epithelial Cells Few Amorphous Sediment Few Urine Bacteria Many Urine Mucus Moderate Result Diagrams: 11/11/19 21:18 11/11/19 21:35 Imaging Impressions Last 24 hrs: CT scan of the abdomen and pelvis-images personally reviewed-there is an area of stranding around the colon near the junction of the sigmoid and descending colon consistent with diverticulitis. No obvious perforation. No other acute findings in the abdomen. Sepsis Event Note - Evaluation Sepsis Screening Result: No Definite Risk - Focused Exam Vital Signs: Vital Signs Temp Pulse Resp BP Pulse Ox 11/11/19 23:20 37.2 C 69 16 123/56 L 95 11/11/19 23:05 37.2 C 66 16 105/50 L 94 L 11/11/19 21:13 37.1 C 98 16 120/95 H 95 *Q Meaningful Use (ADM) - VTE Risk Assess *Q Each Risk Factor Represents 1 Point: Obesity ( BMI > 25 kg/m2) Total Score 1 Point Risk Factors: 1 Each Risk Factor Represents 2 Points: Malignancy (present or previous) Total Score 2 Point Risk Factors: 2 Each Risk Factor Represents 3 Points: Age 75 Years or Greater, History of DVT/PE Total Score 3 Point Risk Factors: 6 Each Risk Factor Represents 5 Points: None Total Score 5 Point Risk Factors: 0 Venous Thromboembolism Risk Factor Score *Q: 9 - Problem List (1) Acute diverticulitis SNOMED Code(s): 028393803 ICD Code: K57.92 - DVTRCLI OF INTEST, PART UNSP, W/O PERF OR ABSCESS W/O BLEED Status: Acute Current Visit: Yes (2) Hypokalemia SNOMED Code(s): 40404256 ICD Code: E87.6 - HYPOKALEMIA Status: Acute Current Visit: Yes (3) Multiple myeloma, stage 1 SNOMED Code(s): 057356900, 062247177 ICD Code: C90.00 - MULTIPLE MYELOMA NOT HAVING ACHIEVED REMISSION Status: Chronic Current Visit: Yes (4) Stage III chronic kidney disease SNOMED Code(s): 901627155 ICD Code: N18.3 - CHRONIC KIDNEY DISEASE, STAGE 3 (MODERATE) Status: Chronic Current Visit: Yes (5) Essential hypertension SNOMED Code(s): 79921940 ICD Code: I10 - ESSENTIAL (PRIMARY) HYPERTENSION Status: Chronic Current Visit: Yes (6) Type 2 diabetes mellitus SNOMED Code(s): 31325268 ICD Code: E11.9 - TYPE 2 DIABETES MELLITUS WITHOUT COMPLICATIONS Status: Chronic Current Visit: Yes Qualifiers: Diabetes mellitus penitentiary insulin use: without termite inspector use Diabetes mellitus complication status: without complication Qualified Code(s): E11.9 - Type 2 diabetes mellitus without complications Problem List Initiated/Reviewed/Updated: Yes Orders Last 24hrs: Active Orders 24 hr Category Date Time Status Patient Status Manage Transfer [TRANSFER] Routine ADT 11/12/19 01:52 Ordered CULTURE BLOOD [BC] Stat Lab 11/11/19 22:05 Received CULTURE BLOOD [BC] Stat Lab 11/11/19 22:15 Received NS + KCl 20mEq/L [Normal Saline with 20 mEq KCl] 1,000 Med 11/11/19 22:00 Active ml IV ASDIRECTED Sodium Chloride 0.9% [Normal Saline] 100 ml Med 11/11/19 23:15 Active IV ASDIRECTED Sodium Chloride 0.9% [Saline Flush] Med 11/11/19 21:18 Active 10 ml FLUSH ASDIRECTED PRN Saline Lock Insert [OM.PC] Routine Oth 11/11/19 21:18 Ordered Resuscitation Status Routine Resus Stat 11/12/19 01:54 Ordered Medication Orders Potassium Chloride/Sodium Chloride (Normal Saline With 20 Meq Kcl) 1,000 mls @ 500 mls/hr IV ASDIRECTED TREVOR Last Admin: 11/11/19 22:04 Dose: 500 mls/hr Documented by: MAYRA Sodium Chloride (Normal Saline) 100 mls @ 3 mls/sec IV ASDIRECTED TREVOR Last Admin: 11/11/19 23:55 Dose: 3 mls/sec Documented by: CORINNA Sodium Chloride (Saline Flush) 10 ml FLUSH ASDIRECTED PRN PRN Reason: Keep Vein Open Assessment/Plan Comment:: ASSESSMENT AND PLAN - Acute diverticulitis-manifestations of abdominal pain and anorexia. White count normal. No fever currently. He is quite weak as well. Not safe for outpatient management because of weakness and his confusion. -Antibiotic coverage with Ampicillin/sulbactam -Symptomatic management of pain and nausea -Probiotics Hypokalemia-mild. He did receive a small quantity of supplementation in the emergency room. -40 mEq by mouth x1 Multiple myeloma-he has had recent chemotherapy. Type 2 diabetes mellitus-stable and well controlled. Stage III kidney disease-stable DVT-recently discovered, he has been anticoagulated for 3 months but still has persistent thrombus noted on recent ultrasound. -Continue warfarin Maintenance issues - - DVT prophylaxis -warfarin - GI prophylaxis -not indicated - Nutrition -consistent carbohydrates - [place] catheter -not indicated CODE STATUS -DNR/DNI Admission justification -patient will be referred observation status for initiation of IV antibiotics and strengthening Disposition -I would anticipate discharge home after the hospital stay Primary care physician -Dr Alex Maciel M.D. - Mortality Measure Prognosis:: Good
[2019-11-12] MEDS ORDERED: Melatonin 3 MG Tab PO PRN (02:12)
[2019-11-12] MEDS ORDERED: NS + KCl 20mEq/L 1,000 ML IV SCH ×2 (02:12→11:01)
[2019-11-12] MEDS ORDERED: oxyCODONE 5 MG Tab PO PRN (02:12)
[2019-11-12] MEDS ORDERED: Acetaminophen 325 MG Tab PO PRN (02:12)
[2019-11-12] MEDS ORDERED: LORazepam 2 MG/ML SDV IVPUSH PRN (02:12)
[2019-11-12] MEDS ORDERED: Magnesium Hydroxide 400 MG/5 ML Susp 30 ML Cup PO PRN (02:12)
[2019-11-12] MEDS ORDERED: Ondansetron 4 MG/2 ML SDV IV PRN (02:12)
[2019-11-12] MEDS ORDERED: Potassium Chloride 20 MEQ Tab.ER PO ONE ×2 (02:12→09:00)
[2019-11-12] MEDS ORDERED: Ondansetron 4 MG Tab.DIS PO PRN (02:12)
[2019-11-12] MEDS ORDERED: Ampicillin/Sulbactam Na 1.5 GM in Sodium Chloride 0.9% 50 ML IV SCH (04:00)
[2019-11-12] MEDS ORDERED: metFORMIN 500 MG Tab PO SCH (08:00)
[2019-11-12] MEDS: Levothyroxine 50 MCG **PTOM PO SCH (08:50)
[2019-11-12] MEDS: GLIMEPIRIDE 2 MG PO SCH (08:51)
[2019-11-12] MEDS: Hydrochlorothiazide 25 MG **PTOM PO SCH ×2 (08:52→20:44)
[2019-11-12] MEDS: Lactobacillus Rhamnosus GG (Probiotic) Cap PO SCH ×2 (08:52→20:42)
[2019-11-12] MEDS: LOSARTAN 100MG **PTOM PO SCH (08:53)
[2019-11-12] MEDS: ACYCLOVIR 400 MG PO SCH ×2 (08:53→20:47)
[2019-11-12] MEDS: Multivitamins with Iron/Calcium/Folic Acid/Minerals Tab PO SCH (08:54)
[2019-11-12] MEDS: OXYBUTYNIN 10 MG PO SCH ×2 (08:54→09:01)
[2019-11-12] MEDS: METFORMIN 1000MG **PTOM PO SCH ×2 (08:54→17:14)
[2019-11-12] MEDS: SIMVASTATIN 20 MG PO SCH (08:55)
[2019-11-12] MEDS: Cholecalciferol (Vitamin D3) 25 MCG Tab PO SCH (08:55)
[2019-11-12] MEDS: Calcium Carbonate 500 MG Tab.Chew PO SCH (08:55)
[2019-11-12] MEDS ORDERED: Losartan 50 MG Tab PO SCH (09:00)
[2019-11-12] MEDS ORDERED: Oxybutynin 5 MG Tab PO SCH (09:00)
[2019-11-12] MEDS ORDERED: Fluticasone Propionate Nasal Spray 16 GM Bottle NAS SCH (09:00)
[2019-11-12] MEDS ORDERED: Acyclovir 200 MG Cap PO SCH (09:00)
[2019-11-12] MEDS: Fluticasone Propionate Nasal Spray 16 GM Bottle NASBOTH SCH (09:02)
[2019-11-12] MEDS: GLUCOSAMINE 500 MG PO SCH ×2 (09:03→20:49)
[2019-11-12] MEDS: Ampicillin/Sulbactam Na 1.5 GM in Sodium Chloride 0.9% 50 ML IV SCH ×3 (10:05→21:07)
--- NOTE | 2019-11-12 11:01 | PCM.PN ---
- General Info Date of Service: 11/12/19 Subjective Update: No acute events since admission. Pain is a little better but still moderate with certain movements and any sort of pressure on the abdomen. He had a large loose bowel movement this morning. No fevers. No nausea. Tolerated breakfast. Tolerated the shower with no nausea or significant increase in pain. Strength is quite a bit better today than last night. Potassium level still mildly low. Functional Status: Reports: Pain Controlled, Tolerating Diet - Review of Systems General: Denies: Fever Gastrointestinal: Reports: Abdominal Pain - Patient Data Vitals - Most Recent: Last Vital Signs Temp 36.9 C 11/12/19 08:03 Pulse 72 11/12/19 08:03 Resp 18 11/12/19 08:03 BP 107/50 L 11/12/19 08:03 Pulse Ox 94 L 11/12/19 08:03 Weight - Most Recent: 106.821 kg I&O - Last 24 Hours: Intake & Output 11/11/19 11/12/19 11/12/19 22:59 06:59 14:59 Intake Total 328 480 Balance 328 480 Lab Results Last 24 Hours: Laboratory Results - last 24 hr 11/11/19 11/11/19 11/11/19 Range/Units 21:18 21:35 21:35 WBC 10.9 (4.5-11.0) K/uL RBC 4.30 (4.30-5.90) M/uL Hgb 12.2 (12.0-15.0) g/dL Hct 37.5 L (40.0-54.0) % MCV 87 (80-98) fL MCH 28 (27-31) pg MCHC 33 (32-36) % Plt Count 206 (150-400) K/uL PT (9.5-12.0) sec INR (0.80-1.20) Sodium 136 L (140-148) mmol/L Potassium 3.4 L (3.6-5.2) mmol/L Chloride 99 L (100-108) mmol/L Carbon Dioxide 24 (21-32) mmol/L Anion Gap 16.4 H (5.0-14.0) mmol/L BUN 20 H (7-18) mg/dL Creatinine 1.5 H D (0.8-1.3) mg/dL Est Cr Clr Drug Dosing 48.22 mL/min Estimated GFR (MDRD) 45 L (>60) Glucose 197 H (74-106) mg/dL Lactic Acid 2.3 H (0.4-2.0) mmol/L Calcium 8.3 L (8.5-10.1) mg/dL Urine Color (YELLOW) Urine Appearance (CLEAR) Urine pH (5.0-8.0) Ur Specific [place] (1.008-1.030) Urine Protein (NEGATIVE) mg/dL Urine Glucose (UA) (NEGATIVE) mg/dL Urine Ketones (NEGATIVE) mg/dL Urine Occult Blood (NEGATIVE) Urine Nitrite (NEGATIVE) Urine Bilirubin (NEGATIVE) Urine Urobilinogen (0.2-1.0) EU/dL Ur Leukocyte Esterase (NEGATIVE) Urine RBC (0-5) Urine WBC (0-5) Ur Epithelial Cells Amorphous Sediment Urine Bacteria Urine Mucus 11/11/19 11/12/19 11/12/19 Range/Units 23:12 00:52 04:10 WBC 9.6 (4.5-11.0) K/uL RBC 3.95 L (4.30-5.90) M/uL Hgb 11.1 L (12.0-15.0) g/dL Hct 34.8 L (40.0-54.0) % MCV 88 (80-98) fL MCH 28 (27-31) pg MCHC 32 (32-36) % Plt Count 191 (150-400) K/uL PT 21.1 H (9.5-12.0) sec INR 1.96 H (0.80-1.20) Sodium (140-148) mmol/L Potassium (3.6-5.2) mmol/L Chloride (100-108) mmol/L Carbon Dioxide (21-32) mmol/L Anion Gap (5.0-14.0) mmol/L BUN (7-18) mg/dL Creatinine (0.8-1.3) mg/dL Est Cr Clr Drug Dosing mL/min Estimated GFR (MDRD) (>60) Glucose (74-106) mg/dL Lactic Acid (0.4-2.0) mmol/L Calcium (8.5-10.1) mg/dL Urine Color [place] A (YELLOW) Urine Appearance Clear (CLEAR) Urine pH 5.5 (5.0-8.0) Ur Specific [place] 1.025 (1.008-1.030) Urine Protein 100 H (NEGATIVE) mg/dL Urine Glucose (UA) Negative (NEGATIVE) mg/dL Urine Ketones Trace H (NEGATIVE) mg/dL Urine Occult Blood Trace-intact H (NEGATIVE) Urine Nitrite Positive H (NEGATIVE) Urine Bilirubin Moderate H (NEGATIVE) Urine Urobilinogen 1.0 (0.2-1.0) EU/dL Ur Leukocyte Esterase Negative (NEGATIVE) Urine RBC 0-5 (0-5) Urine WBC 0-5 (0-5) Ur Epithelial Cells Few Amorphous Sediment Few Urine Bacteria Many Urine Mucus Moderate 08/30/20 Range/Units 04:10 WBC (4.5-11.0) K/uL RBC (4.30-5.90) M/uL Hgb (12.0-15.0) g/dL Hct (40.0-54.0) % MCV (80-98) fL MCH (27-31) pg MCHC (32-36) % Plt Count (150-400) K/uL PT (9.5-12.0) sec INR (0.80-1.20) Sodium 137 L (140-148) mmol/L Potassium 3.4 L (3.6-5.2) mmol/L Chloride 101 (100-108) mmol/L Carbon Dioxide 27 (21-32) mmol/L Anion Gap 12.4 (5.0-14.0) mmol/L BUN 20 H (7-18) mg/dL Creatinine 1.3 (0.8-1.3) mg/dL Est Cr Clr Drug Dosing 55.62 mL/min Estimated GFR (MDRD) 53 L (>60) Glucose 159 H (74-106) mg/dL Lactic Acid (0.4-2.0) mmol/L Calcium 7.9 L (8.5-10.1) mg/dL Urine Color (YELLOW) Urine Appearance (CLEAR) Urine pH (5.0-8.0) Ur Specific [place] (1.008-1.030) Urine Protein (NEGATIVE) mg/dL Urine Glucose (UA) (NEGATIVE) mg/dL Urine Ketones (NEGATIVE) mg/dL Urine Occult Blood (NEGATIVE) Urine Nitrite (NEGATIVE) Urine Bilirubin (NEGATIVE) Urine Urobilinogen (0.2-1.0) EU/dL Ur Leukocyte Esterase (NEGATIVE) Urine RBC (0-5) Urine WBC (0-5) Ur Epithelial Cells Amorphous Sediment Urine Bacteria Urine Mucus Med Orders - Current: Current Medications Acetaminophen (Tylenol) 650 mg PO Q4H PRN PRN Reason: Pain (Mild 1-3)/fever Amlodipine Besylate (Norvasc) 5 mg PO BEDTIME [facility] Aspirin (Halfprin) 81 mg PO BEDTIME [facility] Calcium Carbonate/Glycine (Tums) 500 mg PO DAILY [facility] Last Admin: 11/12/19 08:55 Dose: Not Given Documented by: Cholecalciferol (Vitamin D3) 50 mcg PO DAILY [facility] Last Admin: 11/12/19 08:55 Dose: 50 mcg Documented by: Fluticasone Propionate (Flonase) 0 gm NASBOTH DAILY [facility] Last Admin: 11/12/19 09:02 Dose: Not Given Documented by: Glimepiride (Amaryl) 2 mg PO DAILY [facility] Last Admin: 11/12/19 08:51 Dose: 2 mg Documented by: Hydrochlorothiazide (Hydrochlorothiazide) 25 mg PO BID [facility] Last Admin: 11/12/19 08:52 Dose: 25 mg Documented by: Ampicillin Sodium/Sulbactam (Sodium 1.5 gm/ Sodium Chloride) 50 mls @ 100 mls/hr IV Q6HR [facility] Last Admin: 11/12/19 10:05 Dose: 100 mls/hr Documented by: Lactobacillus Rhamnosus (Culturelle) 1 cap PO BID [facility] Last Admin: 11/12/19 08:52 Dose: 1 cap Documented by: Levothyroxine Sodium (Synthroid) 50 mcg PO DAILY@0730 [facility] Last Admin: 11/12/19 08:50 Dose: 50 mcg Documented by: Lorazepam (Ativan) 0.5 mg IVPUSH Q4H PRN PRN Reason: Nausea/Vomiting Magnesium Hydroxide (Milk Of Magnesia) 30 ml PO Q12H PRN PRN Reason: Constipation Melatonin (Melatonin) 9 mg PO BEDTIME PRN PRN Reason: Sleep Multivitamins/Minerals (Thera M Plus) 1 tab PO DAILY [facility] Last Admin: 11/12/19 08:54 Dose: 1 tab Documented by: Ondansetron HCl (Zofran) 4 mg IV Q6H PRN PRN Reason: Nausea/Vomiting Ondansetron HCl (Zofran Odt) 4 mg PO Q6H PRN PRN Reason: Nausea able to take PO Oxycodone HCl (Oxycodone) 5 mg PO Q4H PRN PRN Reason: Pain (moderate 4-6) Glucosamine 500mg (Ptom) 0 each PO BID [facility] Last Admin: 11/12/19 09:03 Dose: Not Given Documented by: Oxybutynin Er 10mg * (*Ptom) 0 each PO DAILY [facility] Last Admin: 11/12/19 09:01 Dose: Not Given Documented by: Acyclovir 400mg (Ptom) 0 each PO BID [facility] Last Admin: 11/12/19 08:53 Dose: 1 each Documented by: Metformin 1000mg (Ptom) 0 each PO BIDMEALS [facility] Last Admin: 11/12/19 08:54 Dose: 1 each Documented by: Losartan 100mg (Ptom) 0 each PO DAILY [facility] Last Admin: 11/12/19 08:53 Dose: 1 each Documented by: Senna/Docusate Sodium (Senna Plus) 1 tab PO BID PRN PRN Reason: Constipation Simvastatin (Zocor) 20 mg PO DAILY [facility] Last Admin: 11/12/19 08:55 Dose: 20 mg Documented by: Sodium Chloride (Saline Flush) 10 ml FLUSH ASDIRECTED PRN PRN Reason: Keep Vein Open Warfarin Sodium (Coumadin) 10 mg PO DAILY@1300 [facility] Discontinued Medications Potassium Chloride/Sodium Chloride (Normal Saline With 20 Meq Kcl) 1,000 mls @ 500 mls/hr IV ASDIRECTED [facility] Last Admin: 11/11/19 22:04 Dose: 500 mls/hr Documented by: Ampicillin Sodium/Sulbactam (Sodium 1.5 gm/ Sodium Chloride) 50 mls @ 100 mls/hr IV ONETIME ONE Stop: 11/11/19 22:29 Last Admin: 11/11/19 22:18 Dose: 100 mls/hr Documented by: Sodium Chloride (Normal Saline) 100 mls @ 3 mls/sec IV ASDIRECTED [facility] Last Admin: 11/11/19 23:55 Dose: 3 mls/sec Documented by: Ampicillin Sodium/Sulbactam (Sodium 1.5 gm/ Sodium Chloride) 50 mls @ 100 mls/hr IV Q6H [facility] Last Admin: 11/12/19 04:09 Dose: 100 mls/hr Documented by: Potassium Chloride/Sodium Chloride (Normal Saline With 20 Meq Kcl) 1,000 mls @ 100 mls/hr IV ASDIRECTED [facility] Last Admin: 11/12/19 02:51 Dose: 100 mls/hr Documented by: Iopamidol (Isovue-300 (61%)) 100 ml IV ONETIME ONE Stop: 11/11/19 23:03 Last Admin: 11/11/19 23:57 Dose: 100 ml Documented by: Potassium Chloride (Klor-Con M20) 40 meq PO ONETIME ONE Stop: 11/12/19 02:13 Last Admin: 11/12/19 02:36 Dose: 40 meq Documented by: Potassium Chloride (Klor-Con M20) 40 meq PO ONETIME ONE Stop: 11/12/19 09:01 Last Admin: 11/12/19 08:53 Dose: 40 meq Documented by: Sodium Chloride (Saline Flush) 10 ml FLUSH ONETIME ONE Stop: 11/11/19 23:03 Last Admin: 11/11/19 23:50 Dose: 10 ml Documented by: - Exam Quality Assessment: No: Supplemental Oxygen General: Alert, Oriented, Cooperative, No Acute Distress Lungs: Normal Respiratory Effort GI/Abdominal Exam: Soft, No Distention, Tender (left side, moderate ) Extremities: No Pedal Edema Psy/Mental Status: Alert, Normal Affect Sepsis Event Note - Evaluation Sepsis Screening Result: No Definite Risk - Focused Exam Vital Signs: Vital Signs Temp Pulse Resp BP Pulse Ox 11/12/19 08:03 36.9 C 72 18 107/50 L 94 L 11/12/19 02:31 37.1 C 68 16 148/63 H 98 11/11/19 23:20 37.2 C 69 16 123/56 L 95 11/11/19 23:05 37.2 C 66 16 105/50 L 94 L - Problem List & Annotations (1) Acute diverticulitis SNOMED Code(s): 740601351 Code(s): K57.92 - DVTRCLI OF INTEST, PART UNSP, W/O PERF OR ABSCESS W/O BLEED Status: Acute Current Visit: Yes (2) Hypokalemia SNOMED Code(s): 47737203 Code(s): E87.6 - HYPOKALEMIA Status: Acute Current Visit: Yes (3) Multiple myeloma, stage 1 SNOMED Code(s): 578326478, 416820191 Code(s): C90.00 - MULTIPLE MYELOMA NOT HAVING ACHIEVED REMISSION Status: Chronic Current Visit: Yes (4) Stage III chronic kidney disease SNOMED Code(s): 920647450 Code(s): N18.3 - CHRONIC KIDNEY DISEASE, STAGE 3 (MODERATE) Status: Chronic Current Visit: Yes (5) Essential hypertension SNOMED Code(s): 54815768 Code(s): I10 - ESSENTIAL (PRIMARY) HYPERTENSION Status: Chronic Current Visit: Yes (6) Type 2 diabetes mellitus SNOMED Code(s): 97938348 Code(s): E11.9 - TYPE 2 DIABETES MELLITUS WITHOUT COMPLICATIONS Status: Chronic Current Visit: Yes Qualifiers: Diabetes mellitus product marketing programs manager insulin use: without product marketing programs manager use Diabetes mellitus complication status: without complication Qualified Code(s): E11.9 - Type 2 diabetes mellitus without complications - Problem List Review Problem List Initiated/Reviewed/Updated: Yes - My Orders Last 24 Hours: My Active Orders 11/12/19 01:54 Resuscitation Status Routine 11/12/19 02:12 Acetaminophen [TylenoL] 650 mg PO Q4H PRN Docusate Sodium/Sennosides [Senna Plus] 1 tab PO BID PRN LORazepam [Ativan] 0.5 mg IVPUSH Q4H PRN Magnesium Hydroxide [Milk of Magnesia] 30 ml PO Q12H PRN Melatonin 9 mg PO BEDTIME PRN Ondansetron [Zofran ODT] 4 mg PO Q6H PRN Ondansetron [Zofran] 4 mg IV Q6H PRN oxyCODONE 5 mg PO Q4H PRN 11/12/19 02:12 Patient Status [ADT] Routine Intake and Output [RC] QSHIFT Notify Provider Vital Signs [RC] ASDIRECTED Oxygen Therapy [RC] PRN Up ad Erna [RC] ASDIRECTED VTE/DVT Education [RC] Per Unit Routine Vital Signs [RC] Q4H 11/12/19 07:30 Levothyroxine [Synthroid] 50 mcg PO DAILY@0730 11/12/19 08:00 Ambulate [RC] QID Consistent Carbohydrate Diet [DIET] 11/12/19 09:00 Calcium Carbonate [Tums] 500 mg PO DAILY Cholecalciferol (Vitamin D3) [Vitamin D3] 50 mcg PO DAILY Fluticasone Propionate [Flonase] 0 gm NASBOTH DAILY Glimepiride [Amaryl] 2 mg PO DAILY Lactobacillus Rhamnosus GG [Culturelle] 1 cap PO BID Multivitamins w-Iron/Ca/FA/Min [Thera M Plus] 1 tab PO DAILY Patient's Own Medication [Ptom] 0 each PO BID Patient's Own Medication [Ptom] 0 each PO BID Patient's Own Medication [Ptom] 0 each PO BIDMEALS Patient's Own Medication [Ptom] 0 each PO DAILY Patient's Own Medication [Ptom] 0 each PO DAILY Simvastatin [Zocor] 20 mg PO DAILY hydroCHLOROthiazide 25 mg PO BID 11/12/19 10:00 Ampicillin/Sulbactam Na [Unasyn] 1.5 gm Sodium Chloride 0.9% [Normal Saline] 50 ml IV Q6HR 11/12/19 11:01 NS + KCl 20mEq/L [Normal Saline with 20 mEq KCl] 1,000 ml IV ASDIRECTED 11/12/19 13:00 Warfarin [Coumadin] 10 mg PO DAILY@1300 11/12/19 21:00 Aspirin [Halfprin] 81 mg PO BEDTIME amLODIPine [Norvasc] 5 mg PO BEDTIME 11/13/19 05:00 BASIC METABOLIC PANEL,BMP [CHEM] Timed INR,PT,PROTHROMBIN TIME [COAG] Timed - Plan Plan:: ASSESSMENT AND PLAN - Acute diverticulitis-some improvement in the few hours since admission. Vitals are stable. Pain is tolerable and he has not required pain medication. He did have a bowel movement this morning. -Antibiotic coverage with Ampicillin/sulbactam -Symptomatic management of pain and nausea -Probiotics Hypokalemia-mild. He did receive supplementation overnight. -40 mEq by mouth x1 this morning -Continue potassium containing IV fluids Multiple myeloma-stage I. He has had recent chemotherapy. Type 2 diabetes mellitus-stable and well controlled. Stage III kidney disease-back to baseline. DVT-recently discovered, he has been anticoagulated for 3 months but still has persistent thrombus noted on recent ultrasound. -Continue warfarin Maintenance issues - - DVT prophylaxis -warfarin - GI prophylaxis -not indicated - Nutrition -consistent carbohydrates Admission justification -patient will be referred observation status for initiation of IV antibiotics and strengthening Disposition -I would anticipate discharge home after the hospital stay Primary care physician -Dr Alex Maciel M.D.
[2019-11-12] MEDS: Warfarin 5 MG **PTOM PO SCH (12:19)
[2019-11-12] MEDS: Aspirin 81 MG Tab.EC **PTOM PO SCH (20:43)
[2019-11-12] MEDS: amLODIPine 5 MG **PTOM PO SCH (20:45)
[2019-11-13] MEDS: Ampicillin/Sulbactam Na 1.5 GM in Sodium Chloride 0.9% 50 ML IV SCH ×4 (03:54→21:17)
[2019-11-13] MEDS: Levothyroxine 50 MCG **PTOM PO SCH (07:38)
[2019-11-13] MEDS: METFORMIN 1000MG **PTOM PO SCH ×2 (07:38→17:21)
[2019-11-13] MEDS: LOSARTAN 100MG **PTOM PO SCH (08:35)
[2019-11-13] MEDS: SIMVASTATIN 20 MG PO SCH (08:35)
[2019-11-13] MEDS: ACYCLOVIR 400 MG PO SCH ×2 (08:35→21:18)
[2019-11-13] MEDS: Fluticasone Propionate Nasal Spray 16 GM Bottle NASBOTH SCH (08:36)
[2019-11-13] MEDS: Lactobacillus Rhamnosus GG (Probiotic) Cap PO SCH ×2 (08:36→21:19)
[2019-11-13] MEDS: Hydrochlorothiazide 25 MG **PTOM PO SCH ×2 (08:36→21:20)
[2019-11-13] MEDS: GLIMEPIRIDE 2 MG PO SCH (08:37)
[2019-11-13] MEDS: OXYBUTYNIN 10 MG PO SCH (08:38)
[2019-11-13] MEDS: GLUCOSAMINE 500 MG PO SCH ×2 (08:38→21:21)
[2019-11-13] MEDS: Calcium Carbonate 500 MG Tab.Chew PO SCH (08:40)
[2019-11-13] MEDS: Multivitamins with Iron/Calcium/Folic Acid/Minerals Tab PO SCH (08:40)
[2019-11-13] MEDS: Cholecalciferol (Vitamin D3) 25 MCG Tab PO SCH (08:40)
[2019-11-13] MEDS ORDERED: Potassium Chloride 20 MEQ Tab.ER PO ONE ×2 (11:57→17:00)
[2019-11-13] MEDS ORDERED: Glucose Gel 15 GM in 37.5 GM Tube PO PRN (11:59)
[2019-11-13] MEDS ORDERED: 50% Dextrose in Water 50 ML Syringe IV PRN (11:59)
--- NOTE | 2019-11-13 12:06 | PCM.PN ---
- General Info Date of Service: 11/13/19 Admission Dx/Problem (Free Text): Mr. Webber is noted further improvement over the last 24 hours with less abdominal pain. Vital signs have been good and he has remained afebrile. Tolerating current diet without significant difficulty. Functional Status: Reports: Tolerating Diet, Ambulating, Urinating - Review of Systems General: Reports: Weakness. Denies: Fever, Chills Pulmonary: Reports: No Symptoms Cardiovascular: Reports: No Symptoms Gastrointestinal: Reports: Abdominal Pain. Denies: Constipation, Diarrhea, Difficulty Swallowing, Hematochezia, Melena, Nausea, Vomiting - Patient Data Vitals - Most Recent: Last Vital Signs Temp 97.5 F 11/13/19 10:29 Pulse 60 11/13/19 10:29 Resp 16 11/13/19 10:29 BP 113/37 L 11/13/19 10:29 Pulse Ox 96 11/13/19 10:29 Weight - Most Recent: 235 lb 8 oz I&O - Last 24 Hours: Intake & Output 11/12/19 11/13/19 11/13/19 22:59 06:59 14:59 Intake Total 1908 733 750 Balance 1908 733 750 Lab Results Last 24 Hours: Laboratory Results - last 24 hr 11/13/19 11/13/19 Range/Units 05:35 05:35 PT 17.4 H (9.5-12.0) sec INR 1.61 H (0.80-1.20) Sodium 139 L (140-148) mmol/L Potassium 3.3 L (3.6-5.2) mmol/L Chloride 103 (100-108) mmol/L Carbon Dioxide 25 (21-32) mmol/L Anion Gap 14.3 H (5.0-14.0) mmol/L BUN 21 H (7-18) mg/dL Creatinine 1.0 (0.8-1.3) mg/dL Est Cr Clr Drug Dosing 72.30 mL/min Estimated GFR (MDRD) > 60 (>60) Glucose 144 H (74-106) mg/dL Calcium 7.2 L (8.5-10.1) mg/dL [place] Results Last 24 Hours: Microbiology 11/11/19 22:15 Aerobic Blood Culture - Preliminary Blood - Arm, Right NO GROWTH AFTER 1 DAY Anaerobic Blood Culture - Preliminary NO GROWTH AFTER 1 DAY 11/11/19 22:05 Aerobic Blood Culture - Preliminary Blood - Arm, Right NO GROWTH AFTER 1 DAY Anaerobic Blood Culture - Preliminary NO GROWTH AFTER 1 DAY Med Orders - Current: Current Medications Acetaminophen (Tylenol) 650 mg PO Q4H PRN PRN Reason: Pain (Mild 1-3)/fever Amlodipine Besylate (Norvasc) 5 mg PO BEDTIME [facility] Last Admin: 11/12/19 20:45 Dose: 5 mg Documented by: Aspirin (Halfprin) 81 mg PO BEDTIME [facility] [place] Last Admin: 11/12/19 20:43 Dose: 81 mg Documented by: Calcium Carbonate/Glycine (Tums) 500 mg PO DAILY [facility] [place] Last Admin: 11/13/19 08:40 Dose: 500 mg Documented by: Cholecalciferol (Vitamin D3) 50 mcg PO DAILY [facility] [place] Last Admin: 11/13/19 08:40 Dose: 50 mcg Documented by: Dextrose (Glutose 15) 15 gm PO ONETIME PRN PRN Reason: Hypoglycemia Dextrose/Water (Dextrose 50% In Water) 50 ml IV ONETIME PRN PRN Reason: Hypoglycemia Fluticasone Propionate (Flonase) 0 gm NASBOTH DAILY [facility] [place] Last Admin: 11/13/19 08:36 Dose: Not Given Documented by: Glimepiride (Amaryl) 2 mg PO DAILY [facility] [place] Last Admin: 11/13/19 08:37 Dose: 2 mg Documented by: Hydrochlorothiazide (Hydrochlorothiazide) 25 mg PO BID [facility] [place] Last Admin: 11/13/19 08:36 Dose: 25 mg Documented by: Ampicillin Sodium/Sulbactam (Sodium 1.5 gm/ Sodium Chloride) 50 mls @ 100 mls/hr IV Q6HR [facility] [place] Last Admin: 11/13/19 10:09 Dose: 100 mls/hr Documented by: Insulin Human Lispro (Humalog) 0 unit SUBCUT QIDACANDBED [facility]; Protocol Lactobacillus Rhamnosus (Culturelle) 1 cap PO BID [facility] [place] Last Admin: 11/13/19 08:36 Dose: 1 cap Documented by: Levothyroxine Sodium (Synthroid) 50 mcg PO DAILY@0730 [facility] [place] Last Admin: 11/13/19 07:38 Dose: 50 mcg Documented by: Lorazepam (Ativan) 0.5 mg IVPUSH Q4H PRN PRN Reason: Nausea/Vomiting Magnesium Hydroxide (Milk Of Magnesia) 30 ml PO Q12H PRN PRN Reason: Constipation Melatonin (Melatonin) 9 mg PO BEDTIME PRN PRN Reason: Sleep Multivitamins/Minerals (Thera M Plus) 1 tab PO DAILY [facility] [place] Last Admin: 11/13/19 08:40 Dose: 1 tab Documented by: Ondansetron HCl (Zofran) 4 mg IV Q6H PRN PRN Reason: Nausea/Vomiting Ondansetron HCl (Zofran Odt) 4 mg PO Q6H PRN PRN Reason: Nausea able to take PO Oxycodone HCl (Oxycodone) 5 mg PO Q4H PRN PRN Reason: Pain (moderate 4-6) Glucosamine 500mg (Ptom) 0 each PO BID [facility] [place] Last Admin: 11/13/19 08:38 Dose: Not Given Documented by: Oxybutynin Er 10mg * (*Ptom) 0 each PO DAILY [facility] [place] Last Admin: 11/13/19 08:38 Dose: Not Given Documented by: Acyclovir 400mg (Ptom) 0 each PO BID [facility] [place] Last Admin: 11/13/19 08:35 Dose: 1 each Documented by: Metformin 1000mg (Ptom) 0 each PO BIDMEALS [facility] [place] Last Admin: 11/13/19 07:38 Dose: 1 each Documented by: Losartan 100mg (Ptom) 0 each PO DAILY [facility] [place] Last Admin: 11/13/19 08:35 Dose: 1 each Documented by: Potassium Chloride (Klor-Con M20) 40 meq PO ONETIME ONE Stop: 11/13/19 17:01 Senna/Docusate Sodium (Senna Plus) 1 tab PO BID PRN PRN Reason: Constipation Simvastatin (Zocor) 20 mg PO DAILY [facility] [place] Last Admin: 11/13/19 08:35 Dose: 20 mg Documented by: Sodium Chloride (Saline Flush) 10 ml FLUSH ASDIRECTED PRN PRN Reason: Keep Vein Open Warfarin Sodium (Coumadin) 10 mg PO DAILY@1300 [facility] [place] Last Admin: 11/12/19 12:19 Dose: 10 mg Documented by: Discontinued Medications Potassium Chloride/Sodium Chloride (Normal Saline With 20 Meq Kcl) 1,000 mls @ 500 mls/hr IV ASDIRECTED [facility] [place] Last Admin: 08/29/20 22:04 Dose: 500 mls/hr Documented by: Ampicillin Sodium/Sulbactam (Sodium 1.5 gm/ Sodium Chloride) 50 mls @ 100 mls/hr IV ONETIME ONE Stop: 11/11/19 22:29 Last Admin: 11/11/19 22:18 Dose: 100 mls/hr Documented by: Sodium Chloride (Normal Saline) 100 mls @ 3 mls/sec IV ASDIRECTED [facility] [place] Last Admin: 11/11/19 23:55 Dose: 3 mls/sec Documented by: Ampicillin Sodium/Sulbactam (Sodium 1.5 gm/ Sodium Chloride) 50 mls @ 100 mls/hr IV Q6H [facility] [place] Last Admin: 11/12/19 04:09 Dose: 100 mls/hr Documented by: Potassium Chloride/Sodium Chloride (Normal Saline With 20 Meq Kcl) 1,000 mls @ 100 mls/hr IV ASDIRECTED [facility] [place] Last Admin: 11/12/19 02:51 Dose: 100 mls/hr Documented by: Potassium Chloride/Sodium Chloride (Normal Saline With 20 Meq Kcl) 1,000 mls @ 50 mls/hr IV ASDIRECTED [facility] [place] Last Admin: 11/12/19 15:05 Dose: 50 mls/hr Documented by: Iopamidol (Isovue-300 (61%)) 100 ml IV ONETIME ONE Stop: 11/11/19 23:03 Last Admin: 11/11/19 23:57 Dose: 100 ml Documented by: Potassium Chloride (Klor-Con M20) 40 meq PO ONETIME ONE Stop: 11/12/19 02:13 Last Admin: 11/12/19 02:36 Dose: 40 meq Documented by: Potassium Chloride (Klor-Con M20) 40 meq PO ONETIME ONE Stop: 11/12/19 09:01 Last Admin: 11/12/19 08:53 Dose: 40 meq Documented by: Potassium Chloride (Klor-Con M20) 40 meq PO ONETIME ONE Stop: 11/13/19 11:58 Sodium Chloride (Saline Flush) 10 ml FLUSH ONETIME ONE Stop: 11/11/19 23:03 Last Admin: 11/11/19 23:50 Dose: 10 ml Documented by: - Exam Quality Assessment: DVT Prophylaxis General: Alert, Oriented, Cooperative, Mild Distress Lungs: Clear to Auscultation, Normal Respiratory Effort Cardiovascular: Regular Rate, Regular Rhythm, No Murmurs GI/Abdominal Exam: Soft, No Organomegaly, Tender. No: Distended, Guarding, Rigid, Rebound Extremities: Non-Tender, No Pedal Edema Sepsis Event Note - Evaluation Sepsis Screening Result: No Definite Risk - Focused Exam Vital Signs: Vital Signs Temp Pulse Resp BP Pulse Ox 11/13/19 10:29 97.5 F 60 16 113/37 L 96 11/13/19 07:19 97.7 F 60 16 103/56 L 95 11/13/19 03:52 98.1 F 67 18 116/59 L 97 - Problem List Review Problem List Initiated/Reviewed/Updated: Yes - My Orders Last 24 Hours: My Active Orders 11/13/19 11:59 Communication Order [RC] STAT Diabetes Education [RC] Click to Edit Notify Provider [RC] PRN Dextrose 50% in Water 50 ml IV ONETIME PRN Dextrose [Glutose 15] 15 gm PO ONETIME PRN 11/13/19 16:30 GLUCOSE POC LAB TO COLLECT JPM [POC] QIDACANDBED 11/13/19 17:00 Insulin Lispro [HumaLOG] See Protocol SUBCUT QIDACANDBED Potassium Chloride [Klor-Con M20] 40 meq PO ONETIME ONE 11/13/19 21:00 GLUCOSE POC LAB TO COLLECT JPM [POC] QIDACANDBED 11/14/19 05:00 BASIC METABOLIC PANEL,BMP [CHEM] Timed INR,PT,PROTHROMBIN TIME [COAG] Timed 11/14/19 07:30 GLUCOSE POC LAB TO COLLECT JPM [POC] QIDACANDBED 11/14/19 11:30 GLUCOSE POC LAB TO COLLECT JPM [POC] QIDACANDBED 11/14/19 16:30 GLUCOSE POC LAB TO COLLECT JPM [POC] QIDACANDBED 11/14/19 21:00 GLUCOSE POC LAB TO COLLECT JPM [POC] QIDACANDBED 11/15/19 07:30 GLUCOSE POC LAB TO COLLECT JPM [POC] QIDACANDBED 11/15/19 11:30 GLUCOSE POC LAB TO COLLECT JPM [POC] QIDACANDBED 11/15/19 16:30 GLUCOSE POC LAB TO COLLECT JPM [POC] QIDACANDBED 11/15/19 21:00 GLUCOSE POC LAB TO COLLECT JPM [POC] QIDACANDBED 11/16/19 07:30 GLUCOSE POC LAB TO COLLECT JPM [POC] QIDACANDBED 11/16/19 11:30 GLUCOSE POC LAB TO COLLECT JPM [POC] QIDACANDBED 11/16/19 16:30 GLUCOSE POC LAB TO COLLECT JPM [POC] QIDACANDBED 11/16/19 21:00 GLUCOSE POC LAB TO COLLECT JPM [POC] QIDACANDBED 11/17/19 07:30 GLUCOSE POC LAB TO COLLECT JPM [POC] QIDACANDBED 11/17/19 11:30 GLUCOSE POC LAB TO COLLECT JPM [POC] QIDACANDBED 11/17/19 16:30 GLUCOSE POC LAB TO COLLECT JPM [POC] QIDACANDBED 11/17/19 21:00 GLUCOSE POC LAB TO COLLECT JPM [POC] QIDACANDBED 11/18/19 07:30 GLUCOSE POC LAB TO COLLECT JPM [POC] QIDACANDBED 11/18/19 11:30 GLUCOSE POC LAB TO COLLECT JPM [POC] QIDACANDBED - Plan Plan:: ASSESSMENT AND PLAN - Acute diverticulitis-further improvement over the last 24 hours, pain significantly improved but not resolved -Antibiotic coverage with Ampicillin/sulbactam -Symptomatic management of pain and nausea -Probiotics Hypokalemia-mild. -40 mEq by mouth twice today -Reassess level in a.m. Multiple myeloma-stage I. He has had recent chemotherapy. Type 2 diabetes mellitus-stable and well controlled. -4 times daily glucometers -Low-dose sliding scale Humalog Stage III kidney disease-back to baseline. DVT-recently discovered, he has been anticoagulated for 3 months but still has persistent thrombus noted on recent ultrasound. -Continue warfarin Maintenance issues - - DVT prophylaxis -warfarin - GI prophylaxis -not indicated - Nutrition -consistent carbohydrates Admission justification -patient will be referred observation status for initiation of IV antibiotics and strengthening Disposition -I would anticipate discharge home after the hospital stay Primary care physician -Dr Alex Ye
[2019-11-13] MEDS: Warfarin 5 MG **PTOM PO SCH (12:55)
[2019-11-13] MEDS: Insulin Lispro 100 Unit/ML 3 ML KwikPen SUBCUT SCH ×2 (17:27→21:24)
[2019-11-13] MEDS: amLODIPine 5 MG **PTOM PO SCH (21:19)
[2019-11-13] MEDS: Aspirin 81 MG Tab.EC **PTOM PO SCH (21:20)
[2019-11-14] MEDS: Ampicillin/Sulbactam Na 1.5 GM in Sodium Chloride 0.9% 50 ML IV SCH ×4 (03:35→21:36)
[2019-11-14] MEDS: Levothyroxine 50 MCG **PTOM PO SCH (07:39)
[2019-11-14] MEDS: Insulin Lispro 100 Unit/ML 3 ML KwikPen SUBCUT SCH ×4 (07:40→21:25)
[2019-11-14] MEDS: METFORMIN 1000MG **PTOM PO SCH ×2 (09:15→18:03)
[2019-11-14] MEDS: GLIMEPIRIDE 2 MG PO SCH (09:17)
[2019-11-14] MEDS: Lactobacillus Rhamnosus GG (Probiotic) Cap PO SCH ×2 (09:17→21:25)
[2019-11-14] MEDS: Hydrochlorothiazide 25 MG **PTOM PO SCH ×2 (09:18→21:30)
[2019-11-14] MEDS: ACYCLOVIR 400 MG PO SCH ×2 (09:19→21:31)
[2019-11-14] MEDS: OXYBUTYNIN 10 MG PO SCH (09:19)
[2019-11-14] MEDS: Multivitamins with Iron/Calcium/Folic Acid/Minerals Tab PO SCH (09:20)
[2019-11-14] MEDS: Cholecalciferol (Vitamin D3) 25 MCG Tab PO SCH (09:21)
[2019-11-14] MEDS: Calcium Carbonate 500 MG Tab.Chew PO SCH (09:21)
[2019-11-14] MEDS: SIMVASTATIN 20 MG PO SCH (09:22)
[2019-11-14] MEDS: LOSARTAN 100MG **PTOM PO SCH (09:23)
[2019-11-14] MEDS: Fluticasone Propionate Nasal Spray 16 GM Bottle NASBOTH SCH (09:27)
[2019-11-14] MEDS: GLUCOSAMINE 500 MG PO SCH ×2 (09:27→21:32)
[2019-11-14] MEDS: Warfarin 5 MG **PTOM PO SCH (13:58)
--- NOTE | 2019-11-14 14:15 | PCM.PN ---
- General Info Date of Service: 11/14/19 Subjective Update: Mr. Webber has been stable over the last 24 hours. Vital signs have been good and he has remained afebrile. Further improvement in abdominal pain, not yet totally resolved. Functional Status: Reports: Tolerating Diet, Ambulating, Urinating - Review of Systems Pulmonary: Reports: No Symptoms Cardiovascular: Reports: No Symptoms Gastrointestinal: Reports: Abdominal Pain. Denies: Difficulty Swallowing, Hematochezia, Melena, Nausea, Vomiting - Patient Data Vitals - Most Recent: Last Vital Signs Temp 97.3 F 11/14/19 11:14 Pulse 62 11/14/19 11:14 Resp 20 11/14/19 11:14 BP 104/58 L 11/14/19 11:14 Pulse Ox 94 L 11/14/19 11:14 Weight - Most Recent: 235 lb 8 oz I&O - Last 24 Hours: Intake & Output 11/13/19 11/14/19 11/14/19 22:59 06:59 14:59 Intake Total 1090 500 Output Total 950 200 100 Balance 140 -200 400 Lab Results Last 24 Hours: Laboratory Results - last 24 hr 11/13/19 11/13/19 11/14/19 Range/Units 16:30 21:00 05:30 PT 16.8 H (9.5-12.0) sec INR 1.55 H (0.80-1.20) Sodium (140-148) mmol/L Potassium (3.6-5.2) mmol/L Chloride (100-108) mmol/L Carbon Dioxide (21-32) mmol/L Anion Gap (5.0-14.0) mmol/L BUN (7-18) mg/dL Creatinine (0.8-1.3) mg/dL Est Cr Clr Drug Dosing mL/min Estimated GFR (MDRD) (>60) Glucose (74-106) mg/dL POC Glucose 153 H 225 H (74-106) MG/DL Calcium (8.5-10.1) mg/dL 11/14/19 11/14/19 11/14/19 Range/Units 05:30 07:25 11:24 PT (9.5-12.0) sec INR (0.80-1.20) Sodium 139 L (140-148) mmol/L Potassium 4.0 (3.6-5.2) mmol/L Chloride 106 (100-108) mmol/L Carbon Dioxide 24 (21-32) mmol/L Anion Gap 13.0 (5.0-14.0) mmol/L BUN 17 (7-18) mg/dL Creatinine 1.0 (0.8-1.3) mg/dL Est Cr Clr Drug Dosing 72.30 mL/min Estimated GFR (MDRD) > 60 (>60) Glucose 155 H (74-106) mg/dL POC Glucose 154 H 171 H (74-106) MG/DL Calcium 7.5 L (8.5-10.1) mg/dL [place] Results Last 24 Hours: Microbiology 11/11/19 22:05 Aerobic Blood Culture - Preliminary Blood - Arm, Right NO GROWTH AFTER 2 DAYS Anaerobic Blood Culture - Preliminary NO GROWTH AFTER 2 DAYS 11/11/19 22:15 Aerobic Blood Culture - Preliminary Blood - Arm, Right NO GROWTH AFTER 2 DAYS Anaerobic Blood Culture - Preliminary NO GROWTH AFTER 2 DAYS Med Orders - Current: Current Medications Acetaminophen (Tylenol) 650 mg PO Q4H PRN PRN Reason: Pain (Mild 1-3)/fever Amlodipine Besylate (Norvasc) 5 mg PO BEDTIME [facility] Last Admin: 11/13/19 21:19 Dose: 5 mg Documented by: Aspirin (Halfprin) 81 mg PO BEDTIME [facility] Last Admin: 11/13/19 21:20 Dose: 81 mg Documented by: Calcium Carbonate/Glycine (Tums) 500 mg PO DAILY [facility] Last Admin: 11/14/19 09:21 Dose: 500 mg Documented by: Cholecalciferol (Vitamin D3) 50 mcg PO DAILY [facility] Last Admin: 11/14/19 09:21 Dose: 50 mcg Documented by: Dextrose (Glutose 15) 15 gm PO ASDIRECTED PRN PRN Reason: Hypoglycemia Dextrose/Water (Dextrose 50% In Water) 50 ml IV ASDIRECTED PRN PRN Reason: Hypoglycemia Fluticasone Propionate (Flonase) 0 gm NASBOTH DAILY [facility] Last Admin: 11/14/19 09:27 Dose: Not Given Documented by: Glimepiride (Amaryl) 2 mg PO DAILY [facility] Last Admin: 11/14/19 09:17 Dose: 2 mg Documented by: Hydrochlorothiazide (Hydrochlorothiazide) 25 mg PO BID [facility] Last Admin: 09/01/20 09:18 Dose: 25 mg Documented by: Ampicillin Sodium/Sulbactam (Sodium 1.5 gm/ Sodium Chloride) 50 mls @ 100 mls/hr IV Q6HR [facility] Last Admin: 11/14/19 10:47 Dose: 100 mls/hr Documented by: Insulin Human Lispro (Humalog) 0 unit SUBCUT QIDACANDBED [facility]; Protocol Last Admin: 11/14/19 13:51 Dose: 1 unit Documented by: Lactobacillus Rhamnosus (Culturelle) 1 cap PO BID [facility] Last Admin: 11/14/19 09:17 Dose: 1 cap Documented by: Levothyroxine Sodium (Synthroid) 50 mcg PO DAILY@0730 [facility] Last Admin: 11/14/19 07:39 Dose: 50 mcg Documented by: Lorazepam (Ativan) 0.5 mg IVPUSH Q4H PRN PRN Reason: Nausea/Vomiting Magnesium Hydroxide (Milk Of Magnesia) 30 ml PO Q12H PRN PRN Reason: Constipation Melatonin (Melatonin) 9 mg PO BEDTIME PRN PRN Reason: Sleep Multivitamins/Minerals (Thera M Plus) 1 tab PO DAILY [facility] Last Admin: 11/14/19 09:20 Dose: 1 tab Documented by: Ondansetron HCl (Zofran) 4 mg IV Q6H PRN PRN Reason: Nausea/Vomiting Ondansetron HCl (Zofran Odt) 4 mg PO Q6H PRN PRN Reason: Nausea able to take PO Oxycodone HCl (Oxycodone) 5 mg PO Q4H PRN PRN Reason: Pain (moderate 4-6) Glucosamine 500mg (Ptom) 0 each PO BID [facility] Last Admin: 11/14/19 09:27 Dose: Not Given Documented by: Oxybutynin Er 10mg * (*Ptom) 0 each PO DAILY [facility] Last Admin: 11/14/19 09:19 Dose: 1 each Documented by: Acyclovir 400mg (Ptom) 0 each PO BID [facility] Last Admin: 11/14/19 09:19 Dose: 1 each Documented by: Metformin 1000mg (Ptom) 0 each PO BIDMEALS [facility] Last Admin: 11/14/19 09:15 Dose: 1 each Documented by: Losartan 100mg (Ptom) 0 each PO DAILY [facility] Last Admin: 11/14/19 09:23 Dose: 1 each Documented by: Senna/Docusate Sodium (Senna Plus) 1 tab PO BID PRN PRN Reason: Constipation Simvastatin (Zocor) 20 mg PO DAILY [facility] Last Admin: 11/14/19 09:22 Dose: 20 mg Documented by: Sodium Chloride (Saline Flush) 10 ml FLUSH ASDIRECTED PRN PRN Reason: Keep Vein Open Warfarin Sodium (Coumadin) 10 mg PO DAILY@1300 [facility] Last Admin: 11/14/19 13:58 Dose: 10 mg Documented by: Discontinued Medications Potassium Chloride/Sodium Chloride (Normal Saline With 20 Meq Kcl) 1,000 mls @ 500 mls/hr IV ASDIRECTED [facility] Last Admin: 11/11/19 22:04 Dose: 500 mls/hr Documented by: Ampicillin Sodium/Sulbactam (Sodium 1.5 gm/ Sodium Chloride) 50 mls @ 100 mls/hr IV ONETIME ONE Stop: 11/11/19 22:29 Last Admin: 11/11/19 22:18 Dose: 100 mls/hr Documented by: Sodium Chloride (Normal Saline) 100 mls @ 3 mls/sec IV ASDIRECTED [facility] Last Admin: 11/11/19 23:55 Dose: 3 mls/sec Documented by: Ampicillin Sodium/Sulbactam (Sodium 1.5 gm/ Sodium Chloride) 50 mls @ 100 mls/hr IV Q6H [facility] Last Admin: 11/12/19 04:09 Dose: 100 mls/hr Documented by: Potassium Chloride/Sodium Chloride (Normal Saline With 20 Meq Kcl) 1,000 mls @ 100 mls/hr IV ASDIRECTED [facility] Last Admin: 11/12/19 02:51 Dose: 100 mls/hr Documented by: Potassium Chloride/Sodium Chloride (Normal Saline With 20 Meq Kcl) 1,000 mls @ 50 mls/hr IV ASDIRECTED [facility] Last Admin: 11/12/19 15:05 Dose: 50 mls/hr Documented by: Iopamidol (Isovue-300 (61%)) 100 ml IV ONETIME ONE Stop: 11/11/19 23:03 Last Admin: 11/11/19 23:57 Dose: 100 ml Documented by: Potassium Chloride (Klor-Con M20) 40 meq PO ONETIME ONE Stop: 11/12/19 02:13 Last Admin: 11/12/19 02:36 Dose: 40 meq Documented by: Potassium Chloride (Klor-Con M20) 40 meq PO ONETIME ONE Stop: 11/12/19 09:01 Last Admin: 11/12/19 08:53 Dose: 40 meq Documented by: Potassium Chloride (Klor-Con M20) 40 meq PO ONETIME ONE Stop: 11/13/19 11:58 Last Admin: 11/13/19 13:00 Dose: 40 meq Documented by: Potassium Chloride (Klor-Con M20) 40 meq PO ONETIME ONE Stop: 11/13/19 17:01 Last Admin: 11/13/19 17:21 Dose: 40 meq Documented by: Sodium Chloride (Saline Flush) 10 ml FLUSH ONETIME ONE Stop: 11/11/19 23:03 Last Admin: 11/11/19 23:50 Dose: 10 ml Documented by: - Exam Quality Assessment: DVT Prophylaxis General: Alert, Oriented, Cooperative, Mild Distress Lungs: Clear to Auscultation, Normal Respiratory Effort Cardiovascular: Regular Rate, Regular Rhythm, No Murmurs GI/Abdominal Exam: Soft, No Organomegaly, Tender. No: Distended, Guarding, Rigid, Rebound Extremities: Non-Tender, No Pedal Edema Sepsis Event Note - Evaluation Sepsis Screening Result: No Definite Risk - Focused Exam Vital Signs: Vital Signs Temp Pulse Pulse Resp BP Pulse Ox 11/14/19 11:14 97.3 F 62 20 104/58 L 94 L 11/14/19 07:33 97.1 F 60 16 119/69 95 11/14/19 03:28 97.0 F 61 16 93/50 L 93 L - Problem List Review Problem List Initiated/Reviewed/Updated: Yes - My Orders Last 24 Hours: My Active Orders 11/13/19 17:00 Insulin Lispro [HumaLOG] See Protocol SUBCUT QIDACANDBED 11/14/19 16:30 GLUCOSE POC LAB TO COLLECT JPM [POC] QIDACANDBED 11/14/19 21:00 GLUCOSE POC LAB TO COLLECT JPM [POC] QIDACANDBED 11/15/19 05:00 INR,PT,PROTHROMBIN TIME [COAG] Timed 11/15/19 07:30 GLUCOSE POC LAB TO COLLECT JPM [POC] QIDACANDBED 11/15/19 11:30 GLUCOSE POC LAB TO COLLECT JPM [POC] QIDACANDBED 11/15/19 16:30 GLUCOSE POC LAB TO COLLECT JPM [POC] QIDACANDBED 11/15/19 21:00 GLUCOSE POC LAB TO COLLECT JPM [POC] QIDACANDBED 11/16/19 07:30 GLUCOSE POC LAB TO COLLECT JPM [POC] QIDACANDBED 11/16/19 11:30 GLUCOSE POC LAB TO COLLECT JPM [POC] QIDACANDBED 11/16/19 16:30 GLUCOSE POC LAB TO COLLECT JPM [POC] QIDACANDBED 11/16/19 21:00 GLUCOSE POC LAB TO COLLECT JPM [POC] QIDACANDBED 11/17/19 07:30 GLUCOSE POC LAB TO COLLECT JPM [POC] QIDACANDBED 11/17/19 11:30 GLUCOSE POC LAB TO COLLECT JPM [POC] QIDACANDBED 11/17/19 16:30 GLUCOSE POC LAB TO COLLECT JPM [POC] QIDACANDBED 11/17/19 21:00 GLUCOSE POC LAB TO COLLECT JPM [POC] QIDACANDBED 11/18/19 07:30 GLUCOSE POC LAB TO COLLECT JPM [POC] QIDACANDBED 11/18/19 11:30 GLUCOSE POC LAB TO COLLECT JPM [POC] QIDACANDBED - Plan Plan:: ASSESSMENT AND PLAN Acute diverticulitis-further improvement over the last 24 hours, pain significantly improved but not resolved -Antibiotic coverage with Ampicillin/sulbactam -Symptomatic management of pain and nausea -Probiotics Hypokalemia-resolved Multiple myeloma-stage I. He has had recent chemotherapy. Type 2 diabetes mellitus-stable and well controlled. -4 times daily glucometers -Low-dose sliding scale Humalog Stage III kidney disease-back to baseline. DVT-recently discovered, he has been anticoagulated for 3 months but still has persistent thrombus noted on recent ultrasound. -Continue warfarin Maintenance issues - - DVT prophylaxis -warfarin - GI prophylaxis -not indicated - Nutrition -consistent carbohydrates Admission justification -patient will be referred observation status for initiation of IV antibiotics and strengthening Disposition -I would anticipate discharge home after the hospital stay Primary care physician -Dr Alex Ye
[2019-11-14] MEDS: amLODIPine 5 MG **PTOM PO SCH (21:30)
[2019-11-14] MEDS: Aspirin 81 MG Tab.EC **PTOM PO SCH (21:30)
[2019-11-15] MEDS: Ampicillin/Sulbactam Na 1.5 GM in Sodium Chloride 0.9% 50 ML IV SCH ×2 (03:37→10:45)
[2019-11-15] MEDS: Levothyroxine 50 MCG **PTOM PO SCH (08:09)
[2019-11-15] MEDS: Insulin Lispro 100 Unit/ML 3 ML KwikPen SUBCUT SCH ×2 (08:11→11:56)
[2019-11-15] MEDS: METFORMIN 1000MG **PTOM PO SCH (08:44)
[2019-11-15] MEDS: GLIMEPIRIDE 2 MG PO SCH (08:45)
[2019-11-15] MEDS: Lactobacillus Rhamnosus GG (Probiotic) Cap PO SCH (08:45)
[2019-11-15] MEDS: Fluticasone Propionate Nasal Spray 16 GM Bottle NASBOTH SCH (08:46)
[2019-11-15] MEDS: Hydrochlorothiazide 25 MG **PTOM PO SCH (08:46)
[2019-11-15] MEDS: LOSARTAN 100MG **PTOM PO SCH (08:47)
[2019-11-15] MEDS: ACYCLOVIR 400 MG PO SCH (08:47)
[2019-11-15] MEDS: GLUCOSAMINE 500 MG PO SCH (08:47)
[2019-11-15] MEDS: Multivitamins with Iron/Calcium/Folic Acid/Minerals Tab PO SCH (08:48)
[2019-11-15] MEDS: Cholecalciferol (Vitamin D3) 25 MCG Tab PO SCH (08:49)
[2019-11-15] MEDS: SIMVASTATIN 20 MG PO SCH (08:49)
[2019-11-15] MEDS: Calcium Carbonate 500 MG Tab.Chew PO SCH (08:49)
[2019-11-15] MEDS: OXYBUTYNIN 10 MG PO SCH (08:50)
--- NOTE | 2019-11-15 11:41 | PCM.DCSUM1 ---
Discharge Summary - Hospital Course Brief History: Mr. Webber is an 79-year-old gentleman who was admitted through the emergency department with left lower quadrant abdominal pain and profound weakness secondary to diverticulitis. - Discharge Data Discharge Date: 11/15/19 Discharge Disposition: Home, Self-Care 01 Condition: Stable - Referral to Home Health Primary Care Physician: Alex Ye MD - Discharge Diagnosis/Problem(s) (1) Acute diverticulitis SNOMED Code(s): 161638911 ICD Code: K57.92 - DVTRCLI OF INTEST, PART UNSP, W/O PERF OR ABSCESS W/O BLEED Status: Acute Current Visit: Yes (2) Multiple myeloma, stage 1 SNOMED Code(s): 742940971, 183467856 ICD Code: C90.00 - MULTIPLE MYELOMA NOT HAVING ACHIEVED REMISSION Status: Chronic Current Visit: Yes (3) Hypokalemia SNOMED Code(s): 77153255 ICD Code: E87.6 - HYPOKALEMIA Status: Acute Current Visit: Yes (4) Stage III chronic kidney disease SNOMED Code(s): 399458745 ICD Code: N18.3 - CHRONIC KIDNEY DISEASE, STAGE 3 (MODERATE) Status: Chronic Current Visit: Yes (5) Type 2 diabetes mellitus SNOMED Code(s): 14781504 ICD Code: E11.9 - TYPE 2 DIABETES MELLITUS WITHOUT COMPLICATIONS Status: Chronic Current Visit: Yes Qualifiers: Diabetes mellitus shelter insulin use: without alignment mechanic use Diabetes mellitus complication status: without complication Qualified Code(s): E11.9 - Type 2 diabetes mellitus without complications - Patient Summary/Data Hospital Course: Mr. Webber presented to the emergency room with weakness, left lower quadrant abdominal pain and mild confusion. He reports that he first noticed some chills just over 24 hours before presentation. This was on Wednesday night. Wednesday morning, the morning before presentation he developed a temperature to 100.4. As the day progressed he developed initially mild and then moderate sharp left lower quadrant pain. The pain radiated throughout the left side of the abdomen and was worse anytime he tried to twist or if he bumped the left side of his abdomen. In the afternoon he was so weak he had trouble getting out of the recliner. He was confused about time and thought it was 7:00 in the morning rather than 7:00 at night. He does have a history of diverticulitis and this feels similar. Work-up in the emergency room revealed mild hypokalemia and stable kidney disease. White count is normal. CT scan of the abdomen and pelvis did show an area of diverticulitis in the left lower quadrant. He has been started on IV antibiotics and was admitted for further management. He initially was given IV fluids for hydration and IV antibiotic therapy with Unasyn was continued until the time of discharge. Potassium level was replaced with IV potassium and oral potassium and potassium levels were monitored. He was placed on 4 times daily glucometers and did receive low-dose sliding scale Humalog for management of his type 2 diabetes mellitus. Over the course of his hospital stay he had improvement in his abdominal pain and it had almost totally resolved by the time of discharge. He was tolerating a soft diet without difficulty. Activity will be as tolerated and he will remain on the soft diet for a period of 2 weeks. Follow-up appointment will be scheduled in the Coumadin clinic in 2 days as well as a follow-up appointment with primary care in approximately 8 days. Probiotic therapy twice daily over the next few months. - Patient Instructions Diet: GI Soft/Low Residue/Low Fiber Activity: As Tolerated Other/Special Instructions: Please schedule follow-up appointment with primary care provider within 1 week. Please schedule follow-up appointment in the Coumadin clinic in 2 days. - Discharge Plan *PRESCRIPTION DRUG MONITORING PROGRAM REVIEWED*: Not Applicable *COPY OF PRESCRIPTION DRUG MONITORING REPORT IN PATIENT DEEPTI: Not Applicable Prescriptions/Med Rec: Amoxicillin/Potassium Clav [Augmentin 875-125 Tablet] 1 each PO BID #14 tablet Lactobacillus Rhamnosus GG [Culturelle] 1 cap PO BID #60 cap Home Medications: Home Meds Albuterol [Ventolin HFA] 1 - 2 puff IH Q4HR PRN 09/16/17 [History] Ammonium Lactate [Lac-Hydrin 12% Crm] 1 dose TOP BID 09/16/17 [History] Aspirin [Adult Low Dose Aspirin EC] 81 mg PO BEDTIME 09/16/17 [History] Calcium Carbonate [Calcium] 500 mg PO DAILY 09/16/17 [History] Cholecalciferol (Vitamin D3) [Vitamin D3] 2,000 units PO DAILY 09/16/17 [History] Fluticasone Propionate [Flonase] 2 spray RANDY DAILY 09/16/17 [History] Glimepiride [Amaryl] 2 mg PO DAILY 09/16/17 [History] Glucosamine [Glucosamine Sulfate] 500 mg PO BID 09/16/17 [History] Levothyroxine [Synthroid] 50 mcg PO DAILY 09/16/17 [History] Losartan [Cozaar] 100 mg PO DAILY 09/16/17 [History] Multivitamin [Multi-Vitamin Daily] 1 cap PO DAILY 09/16/17 [History] Simvastatin [Zocor] 20 mg PO DAILY 09/16/17 [History] amLODIPine [Norvasc] 5 mg PO BEDTIME 09/16/17 [History] hydroCHLOROthiazide [Hydrochlorothiazide] 25 mg PO BID 09/16/17 [History] metFORMIN [Glucophage] 1,000 mg PO BID 09/16/17 [History] Acyclovir 400 mg PO BID 11/11/19 [History] Lenalidomide [Revlimid] 25 mg PO DAILY 11/11/19 [History] Oxybutynin Chloride [Oxybutynin Chloride ER] 10 mg PO DAILY 11/11/19 [History] Potassium Chloride [Klor-Con 10] 10 meq PO DAILY 11/11/19 [History] Sulfamethoxazole/Trimethoprim [Bactrim 400-80 MG] 1 tab PO ASDIRECTED 11/11/19 [History] Warfarin [Coumadin] 10 mg PO DAILY 11/11/19 [History] Amoxicillin/Potassium Clav [Augmentin 875-125 Tablet] 1 each PO BID #14 tablet 11/15/19 [Rx] Lactobacillus Rhamnosus GG [Culturelle] 1 cap PO BID #60 cap 11/15/19 [Rx] Referrals: Alex Ye MD [Primary Care Provider] - 11/23/19 1:00 pm (Arrive 15 minutes early to register for your appointment.) - Discharge Summary/Plan Comment DC Time >30 min.: No - Patient Data Vitals - Most Recent: Last Vital Signs Temp 97.3 F 11/15/19 10:41 Pulse 58 L 11/15/19 10:41 Resp 18 11/15/19 10:41 BP 117/51 L 11/15/19 10:41 Pulse Ox 97 11/15/19 10:41 Weight - Most Recent: 235 lb 8 oz I&O - Last 24 hours: Intake & Output 11/14/19 11/15/19 11/15/19 22:59 06:59 14:59 Intake Total 290 50 610 Output Total 1000 Balance 290 -950 610 Lab Results - Last 24 hrs: Laboratory Results - last 24 hr 11/14/19 11/14/19 11/15/19 Range/Units 16:16 21:00 03:52 PT 17.2 H (9.5-12.0) sec INR 1.59 H (0.80-1.20) POC Glucose 168 H 161 H (74-106) MG/DL 11/15/19 Range/Units 07:30 PT (9.5-12.0) sec INR (0.80-1.20) POC Glucose 151 H (74-106) MG/DL BEREKET Results - Last 24 hrs: Microbiology 11/11/19 22:15 Aerobic Blood Culture - Preliminary Blood - Arm, Right NO GROWTH AFTER 3 DAYS Anaerobic Blood Culture - Preliminary NO GROWTH AFTER 3 DAYS 11/11/19 22:05 Aerobic Blood Culture - Preliminary Blood - Arm, Right NO GROWTH AFTER 3 DAYS Anaerobic Blood Culture - Preliminary NO GROWTH AFTER 3 DAYS Med Orders - Current: Current Medications Acetaminophen (Tylenol) 650 mg PO Q4H PRN PRN Reason: Pain (Mild 1-3)/fever Amlodipine Besylate (Norvasc) 5 mg PO BEDTIME [facility] Last Admin: 11/14/19 21:30 Dose: 5 mg Documented by: Aspirin (Halfprin) 81 mg PO BEDTIME [facility] Last Admin: 11/14/19 21:30 Dose: 81 mg Documented by: Calcium Carbonate/Glycine (Tums) 500 mg PO DAILY [facility] Last Admin: 11/15/19 08:49 Dose: 500 mg Documented by: Cholecalciferol (Vitamin D3) 50 mcg PO DAILY [facility] Last Admin: 11/15/19 08:49 Dose: 50 mcg Documented by: Dextrose (Glutose 15) 15 gm PO ASDIRECTED PRN PRN Reason: Hypoglycemia Dextrose/Water (Dextrose 50% In Water) 50 ml IV ASDIRECTED PRN PRN Reason: Hypoglycemia Fluticasone Propionate (Flonase) 0 gm NASBOTH DAILY [facility] Last Admin: 11/15/19 08:46 Dose: Not Given Documented by: Glimepiride (Amaryl) 2 mg PO DAILY [facility] Last Admin: 11/15/19 08:45 Dose: 2 mg Documented by: Hydrochlorothiazide (Hydrochlorothiazide) 25 mg PO BID [facility] Last Admin: 11/15/19 08:46 Dose: 25 mg Documented by: Ampicillin Sodium/Sulbactam (Sodium 1.5 gm/ Sodium Chloride) 50 mls @ 100 mls/hr IV Q6HR [facility] Last Admin: 11/15/19 10:45 Dose: 100 mls/hr Documented by: Insulin Human Lispro (Humalog) 0 unit SUBCUT QIDACANDBED [facility]; Protocol Last Admin: 11/15/19 08:11 Dose: 1 unit Documented by: Lactobacillus Rhamnosus (Culturelle) 1 cap PO BID [facility] Last Admin: 11/15/19 08:45 Dose: 1 cap Documented by: Levothyroxine Sodium (Synthroid) 50 mcg PO DAILY@0730 [facility] Last Admin: 11/15/19 08:09 Dose: 50 mcg Documented by: Lorazepam (Ativan) 0.5 mg IVPUSH Q4H PRN PRN Reason: Nausea/Vomiting Magnesium Hydroxide (Milk Of Magnesia) 30 ml PO Q12H PRN PRN Reason: Constipation Melatonin (Melatonin) 9 mg PO BEDTIME PRN PRN Reason: Sleep Multivitamins/Minerals (Thera M Plus) 1 tab PO DAILY [facility] Last Admin: 11/15/19 08:48 Dose: 1 tab Documented by: Ondansetron HCl (Zofran) 4 mg IV Q6H PRN PRN Reason: Nausea/Vomiting Ondansetron HCl (Zofran Odt) 4 mg PO Q6H PRN PRN Reason: Nausea able to take PO Oxycodone HCl (Oxycodone) 5 mg PO Q4H PRN PRN Reason: Pain (moderate 4-6) Glucosamine 500mg (Ptom) 0 each PO BID [facility] Last Admin: 11/15/19 08:47 Dose: Not Given Documented by: Oxybutynin Er 10mg * (*Ptom) 0 each PO DAILY [facility] Last Admin: 11/15/19 08:50 Dose: Not Given Documented by: Acyclovir 400mg (Ptom) 0 each PO BID [facility] Last Admin: 11/15/19 08:47 Dose: 1 each Documented by: Metformin 1000mg (Ptom) 0 each PO BIDMEALS [facility] Last Admin: 11/15/19 08:44 Dose: 1 each Documented by: Losartan 100mg (Ptom) 0 each PO DAILY [facility] Last Admin: 11/15/19 08:47 Dose: 1 each Documented by: Senna/Docusate Sodium (Senna Plus) 1 tab PO BID PRN PRN Reason: Constipation Simvastatin (Zocor) 20 mg PO DAILY [facility] Last Admin: 11/15/19 08:49 Dose: 20 mg Documented by: Sodium Chloride (Saline Flush) 10 ml FLUSH ASDIRECTED PRN PRN Reason: Keep Vein Open Warfarin Sodium (Coumadin) 10 mg PO DAILY@1300 [facility] Last Admin: 11/14/19 13:58 Dose: 10 mg Documented by: Discontinued Medications Potassium Chloride/Sodium Chloride (Normal Saline With 20 Meq Kcl) 1,000 mls @ 500 mls/hr IV ASDIRECTED [facility] Last Admin: 11/11/19 22:04 Dose: 500 mls/hr Documented by: Ampicillin Sodium/Sulbactam (Sodium 1.5 gm/ Sodium Chloride) 50 mls @ 100 mls/hr IV ONETIME ONE Stop: 11/11/19 22:29 Last Admin: 11/11/19 22:18 Dose: 100 mls/hr Documented by: Sodium Chloride (Normal Saline) 100 mls @ 3 mls/sec IV ASDIRECTED [facility] Last Admin: 11/11/19 23:55 Dose: 3 mls/sec Documented by: Ampicillin Sodium/Sulbactam (Sodium 1.5 gm/ Sodium Chloride) 50 mls @ 100 mls/hr IV Q6H [facility] Last Admin: 11/12/19 04:09 Dose: 100 mls/hr Documented by: Potassium Chloride/Sodium Chloride (Normal Saline With 20 Meq Kcl) 1,000 mls @ 100 mls/hr IV ASDIRECTED [facility] Last Admin: 11/12/19 02:51 Dose: 100 mls/hr Documented by: Potassium Chloride/Sodium Chloride (Normal Saline With 20 Meq Kcl) 1,000 mls @ 50 mls/hr IV ASDIRECTED [facility] Last Admin: 11/12/19 15:05 Dose: 50 mls/hr Documented by: Iopamidol (Isovue-300 (61%)) 100 ml IV ONETIME ONE Stop: 11/11/19 23:03 Last Admin: 11/11/19 23:57 Dose: 100 ml Documented by: Potassium Chloride (Klor-Con M20) 40 meq PO ONETIME ONE Stop: 11/12/19 02:13 Last Admin: 11/12/19 02:36 Dose: 40 meq Documented by: Potassium Chloride (Klor-Con M20) 40 meq PO ONETIME ONE Stop: 11/12/19 09:01 Last Admin: 11/12/19 08:53 Dose: 40 meq Documented by: Potassium Chloride (Klor-Con M20) 40 meq PO ONETIME ONE Stop: 11/13/19 11:58 Last Admin: 11/13/19 13:00 Dose: 40 meq Documented by: Potassium Chloride (Klor-Con M20) 40 meq PO ONETIME ONE Stop: 11/13/19 17:01 Last Admin: 11/13/19 17:21 Dose: 40 meq Documented by: Sodium Chloride (Saline Flush) 10 ml FLUSH ONETIME ONE Stop: 11/11/19 23:03 Last Admin: 11/11/19 23:50 Dose: 10 ml Documented by: - Exam General: Reports: Alert, Oriented, Cooperative, No Acute Distress Lungs: Reports: Clear to Auscultation, Normal Respiratory Effort Cardiovascular: Reports: Regular Rate, Regular Rhythm, No Murmurs GI/Abdominal Exam: Soft, Non-Tender, No Organomegaly, No Distention Extremities: Non-Tender, No Pedal Edema
[2019-11-15] MEDS: Warfarin 5 MG **PTOM PO SCH (12:01)
== END 2019-11-15 13:45 | disposition home or self-care (01) ==
LOC: JP.ED 21:04 → JP.MS 11-12 01:52
PROVIDERS: ADMIT Internal Medicine; ATTEND Hospitalist
DX: K57.92 Diverticulitis of intestine, part unspecified, without perforation or abscess without bleeding (principal); E03.9 Hypothyroidism, unspecified; E87.6 Hypokalemia; C90.00 Multiple myeloma not having achieved remission; I12.9 Hypertensive chronic kidney disease with stage 1 through stage 4 chronic kidney disease, or unspecified chronic kidney disease; E11.22 Type 2 diabetes mellitus with diabetic chronic kidney disease; N18.3 Chronic kidney disease, stage 3 (moderate); Z87.891 Personal history of nicotine dependence; Z79.82 Long term (current) use of aspirin; Z79.899 Other long term (current) drug therapy
CPT/HCPCS: 36415; 74177; 80048; 81001; 82962; 83605; 85027; 85610; 87040; 96365; 96366; 99285; A9270; J0287; J1815; J3480; J7050; Q9967; 99284

== ENCOUNTER 2020-03-15 11:08 | Emergency (ER) | payer MEDICARE, BC ==
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
[2020-03-15] MEDS: Bacitracin Oint 1 GM U/D Packet TOP ONE (11:34)
== END 2020-03-15 12:11 | disposition home or self-care (01) ==
LOC: JP.ED 11:08
DX: S61.411A Laceration without foreign body of right hand, initial encounter (principal); I10 Essential (primary) hypertension; F32.9 Major depressive disorder, single episode, unspecified; E11.9 Type 2 diabetes mellitus without complications; E03.9 Hypothyroidism, unspecified; Z79.84 Long term (current) use of oral hypoglycemic drugs; Z79.899 Other long term (current) drug therapy; Z79.01 Long term (current) use of anticoagulants; Z79.82 Long term (current) use of aspirin; W26.9XXA Contact with unspecified sharp object(s), initial encounter
CPT/HCPCS: 12001; 99282; J2001

== ENCOUNTER 2022-07-09 11:05 | Emergency (ER) | payer MEDICARE, BC ==
[2022-07-09] MEDS ORDERED: cefTRIAXone 1 GM in Sodium Chloride 0.9% 50 ML IV ONE (11:21)
== END 2022-07-09 14:26 | disposition home or self-care (01) ==
LOC: JP.ED 11:05
DX: S22.32XA Fracture of one rib, left side, initial encounter for closed fracture (principal); S22.048A Other fracture of fourth thoracic vertebra, initial encounter for closed fracture; S32.018A Other fracture of first lumbar vertebra, initial encounter for closed fracture; S51.811A Laceration without foreign body of right forearm, initial encounter; S09.93XA Unspecified injury of face, initial encounter; S60.222A Contusion of left hand, initial encounter; I10 Essential (primary) hypertension; E11.9 Type 2 diabetes mellitus without complications; E03.9 Hypothyroidism, unspecified; Z79.82 Long term (current) use of aspirin; Z79.01 Long term (current) use of anticoagulants; Z79.84 Long term (current) use of oral hypoglycemic drugs; Z79.899 Other long term (current) drug therapy; W11.XXXA Fall on and from ladder, initial encounter
CPT/HCPCS: 70450; 70450-26; 70486; 70486-26; 71250; 71250-26; 99283; 99285

== ENCOUNTER 2022-09-29 20:00 | Inpatient (IN) | payer MEDICARE, BC ==
[2022-09-29] MEDS ORDERED: Sodium Chloride 0.9% 10 ML Syringe FLUSH PRN (20:07)
[2022-09-29 20:25] LABS: BASOPHILS PERCENT AUTO 0.4 % (0.1-1.3); EOSINOPHILS PERCENT AUTO 0.7 % (0.0-5.4); HEMATOCRIT 38.8 % (38.4-49.7); HEMOGLOBIN 12.9 g/dL (12.9-16.9); IMMATURE GRAN PERCENT AUTO 0.4 % (0.0-0.7); LYMPHOCYTES ABSOLUTE AUTO 0.39 K/uL (0.8-3.3); LYMPHOCYTES PERCENT AUTO 13.8 % (11.4-47.7); MEAN CORPUSCULAR HEMOGLOBIN 30.6 pg (31.6-35.5); MEAN CORPUSCULAR HGB CONC 33.2 g/dL (31.6-35.5); MEAN CORPUSCULAR VOLUME 92.2 fL (81.4-99.0); MONOCYTES ABSOLUTE AUTO 0.31 K/uL (0.20-0.90); NEUTROPHILS ABSOLUTE AUTO 2.09 K/uL (1.0-7.6); NEUTROPHILS PERCENT AUTO 73.7 % (40.0-78.1); PLATELET COUNT,PLT 192 K/uL (130-375); RED BLOOD CELL COUNT 4.21 M/uL (4.14-5.76); WHITE BLOOD CELL COUNT,WBC 2.8 K/uL (3.2-11.0)
[2022-09-29 20:26] LABS: BASOPHILS ABSOLUTE AUTO 0.01 K/uL (0.00-0.10); EOSINOPHILS ABSOLUTE AUTO 0.02 K/uL (0.00-0.40); IMMATURE GRAN ABSOLUTE AUTO 0.01 K/uL (0.00-0.23)
[2022-09-29 20:46] LABS: ALANINE AMINOTRANSFERASE,ALT 35 U/L (12-78); ALBUMIN 3.4 g/dL (3.4-5.0); ALKALINE PHOSPHATASE 91 U/L (46-116); ASPARTATE AMNIOTRANSFERASE,AST 25 U/L (15-37); BILIRUBIN TOTAL 0.8 mg/dL (0.2-1.0); BLOOD UREA NITROGEN,BUN 19 mg/dL (7-18); CALCIUM 8.9 mg/dL (8.5-10.1); CARBON DIOXIDE,CO2 29 mmol/L (21-32); CHLORIDE,CL 103 mmol/L (100-108); CREATININE 1.1 mg/dL (0.8-1.3); ESTIMATED GFR 67 mL/min (>60); GLUCOSE RANDOM 123 mg/dL (74-106); POTASSIUM,K 3.1 mmol/L (3.6-5.2); PROTEIN TOTAL,TP 6.7 g/dL (6.4-8.2); SODIUM,NA 139 mmol/L (140-148)
[2022-09-29 20:47] LABS: ANION GAP 10.1 mmol/L (5.0-14.0)
[2022-09-29] MEDS ORDERED: Sodium Chloride 0.9% 50 ML IV SCH (21:30)
[2022-09-29] MEDS ORDERED: Iopamidol 612 MG/ML 100 ML Bottle IV SCH (21:30)
[2022-09-30] MEDS: Piperacillin/Tazobactam 3.375 GM in Sodium Chloride 0.9% 50 ML IV SCH ×2 (00:09→05:16)
[2022-09-30] MEDS ORDERED: Meropenem 500 MG SDV ONE ×2 (00:31→03:22)
[2022-09-30] MEDS ORDERED: Bupivacaine 0.5% 50 ML MDV ONE (00:31)
[2022-09-30] MEDS ORDERED: Lidocaine 1% with EPINEPHrine 1:100,000 50 ML MDV ONE (00:31)
[2022-09-30] MEDS ORDERED: fentaNYL 250 MCG/5 ML SDV ONE (00:54)
[2022-09-30] MEDS ORDERED: Ondansetron 4 MG/2 ML SDV ONE (00:55)
[2022-09-30] MEDS ORDERED: Succinylcholine 200 MG/10 ML MDV ONE (00:55)
[2022-09-30] MEDS ORDERED: Propofol 200 MG/20 ML SDV ONE (00:55)
[2022-09-30] MEDS ORDERED: Rocuronium 50 MG/5 ML Vial ONE (00:55)
[2022-09-30] MEDS ORDERED: Neostigmine Methylsulfate 1 MG/ML 5 ML Syringe ONE (00:55)
[2022-09-30] MEDS ORDERED: Glycopyrrolate 0.2 MG/ML 5 ML MDV ONE (00:55)
[2022-09-30] MEDS ORDERED: Dexamethasone 4 MG/ML SDV ONE (00:55)
[2022-09-30 01:02] LABS: LACTIC ACID 5.2 mmol/L (0.4-2.0)
[2022-09-30] MEDS ORDERED: Lactated Ringers 1,000 ML ONE (01:43)
[2022-09-30] MEDS ORDERED: Linezolid 600 MG in Premix Bag 1 BAG IV ONE (01:44)
[2022-09-30] MEDS ORDERED: Linezolid 600 MG/300 ML Premix Bag IRR ONE (02:17)
[2022-09-30] MEDS ORDERED: fentaNYL 100 MCG/2 ML SDV ONE (02:32)
[2022-09-30] MEDS: Meropenem 500 MG in Sodium Chloride 0.9% 50 ML IV ONE ×2 (03:20→04:41)
[2022-09-30] MEDS ORDERED: Sodium Chloride 0.9% 10 ML ONE (03:22)
[2022-09-30] MEDS ORDERED: Cyclobenzaprine 10 MG Tab PO PRN (04:17)
[2022-09-30] MEDS ORDERED: Lactated Ringers 1,000 ML IV SCH (04:30)
[2022-09-30 04:31] LABS: HEMATOCRIT 33.4 % (38.4-49.7); HEMOGLOBIN 11.2 g/dL (12.9-16.9); MEAN CORPUSCULAR HEMOGLOBIN 30.8 pg (31.6-35.5); MEAN CORPUSCULAR HGB CONC 33.5 g/dL (31.6-35.5); MEAN CORPUSCULAR VOLUME 91.8 fL (81.4-99.0); RED BLOOD CELL COUNT 3.64 M/uL (4.14-5.76); WHITE BLOOD CELL COUNT,WBC 2.7 K/uL (3.2-11.0)
[2022-09-30] MEDS ORDERED: HYDROmorphone/Normal Saline 6 MG/30 ML PCA Vial IV PRN (04:43)
[2022-09-30] MEDS ORDERED: Acetaminophen 160 MG Tab,Disintegrating PO PRN (04:53)
[2022-09-30] MEDS ORDERED: Naloxone 0.4 MG/ML SDV IV PRN (05:00)
[2022-09-30] MEDS ORDERED: Labetalol 20 MG/4 ML Syringe IVPUSH PRN (05:00)
[2022-09-30] MEDS ORDERED: Metoclopramide 10 MG/2 ML SDV IVPUSH PRN (05:00)
[2022-09-30] MEDS ORDERED: diphenhydrAMINE 50 MG/ML SDV IVPUSH PRN (05:00)
[2022-09-30] MEDS ORDERED: Ondansetron 4 MG/2 ML SDV IVPUSH PRN (05:00)
[2022-09-30] MEDS ORDERED: Acetaminophen 160 MG Tab,Disintegrating PO SCH (05:00)
[2022-09-30 05:01] LABS: ALANINE AMINOTRANSFERASE,ALT 41 U/L (12-78); ALBUMIN 2.5 g/dL (3.4-5.0); ALKALINE PHOSPHATASE 68 U/L (46-116); ASPARTATE AMNIOTRANSFERASE,AST 37 U/L (15-37); BILIRUBIN TOTAL 1.2 mg/dL (0.2-1.0); BLOOD UREA NITROGEN,BUN 16 mg/dL (7-18); CALCIUM 7.8 mg/dL (8.5-10.1); CARBON DIOXIDE,CO2 23 mmol/L (21-32); CHLORIDE,CL 103 mmol/L (100-108); CREATININE 1.2 mg/dL (0.8-1.3); EST CRCL DRUG DOSING (CG) 54.99 mL/min; ESTIMATED GFR 60 mL/min (>60); GLUCOSE RANDOM 226 mg/dL (74-106); MAGNESIUM 1.5 mg/dL (1.8-2.4); PHOSPHORUS 4.2 mg/dL (2.5-4.9); POTASSIUM,K 3.3 mmol/L (3.6-5.2); PRO B-TYPE NATRIUR PEPT,BNPPRO 197 pg/mL (5-450); PROTEIN TOTAL,TP 5.1 g/dL (6.4-8.2); SODIUM,NA 138 mmol/L (140-148)
[2022-09-30 05:04] LABS: ANION GAP 15.3 mmol/L (5.0-14.0)
[2022-09-30] MEDS: Pantoprazole 40 MG Vial IVPUSH SCH (05:15)
[2022-09-30] MEDS ORDERED: Acetaminophen 500 MG Tab PO SCH (05:15)
[2022-09-30] MEDS ORDERED: Acetaminophen 500 MG Tab PO PRN (05:17)
[2022-09-30] MEDS ORDERED: hydrOXYzine HCL 100 MG/2 ML SDV IM PRN (05:53)
[2022-09-30] MEDS: Levothyroxine 50 MCG Tab PO SCH (08:27)
[2022-09-30] MEDS: Magnesium Sulfate/Water 2 GM in Premix Bag 1 BAG IV SCH ×3 (08:49→21:32)
[2022-09-30] MEDS: Meropenem 500 MG in Sodium Chloride 0.9% 50 ML IV SCH ×3 (08:56→21:32)
[2022-09-30] MEDS ORDERED: LENALIDOMIDE 25 MG PO SCH (09:00)
[2022-09-30] MEDS ORDERED: MVI, Adult with Vitamin K 10 ML, Thiamine 200 MG, Zinc/Copper/Manganese/Selenium 1 ML i... IV SCH ×4 (09:00)
[2022-09-30] MEDS: Acyclovir 200 MG Cap PO SCH ×2 (09:28→21:24)
[2022-09-30] MEDS: Sulfamethoxazole/Trimethoprim 800-160 MG Tab PO SCH (09:29)
[2022-09-30] MEDS: Pravastatin 20 MG Tab PO SCH (09:29)
[2022-09-30] MEDS: metFORMIN 500 MG Tab PO SCH ×2 (09:30→16:19)
[2022-09-30] MEDS: Hydrochlorothiazide 25 MG Tab PO SCH (09:35)
[2022-09-30] MEDS: Potassium Chloride 10 MEQ Cap.ER PO SCH ×2 (09:35→16:20)
[2022-09-30] MEDS: Fluticasone NASAL Spray 16 GM Bottle NASBOTH SCH (09:36)
[2022-09-30] MEDS: Glimepiride 2 MG Tab PO SCH (09:47)
[2022-09-30] MEDS: Insulin Lispro 100 Unit/ML 3 ML KwikPen SUBCUT SCH ×3 (10:40→22:08)
[2022-09-30] MEDS: Lactated Ringers 1,000 ML IV SCH (13:33)
[2022-09-30] MEDS: Acetaminophen 500 MG Tab PO SCH ×2 (14:51→21:25)
[2022-09-30] MEDS: MVI, Adult with Vitamin K 10 ML, Thiamine 200 MG, Zinc/Copper/Manganese/Selenium 1 ML i... IV SCH ×4 (16:13)
[2022-09-30] MEDS ORDERED: Aluminum Hydroxide/Magnesium Hydroxide/Simethicone Susp 30 ML Cup PO PRN (18:20)
[2022-09-30 18:51] LABS: HEMATOCRIT 36.2 % (38.4-49.7); MEAN CORPUSCULAR HGB CONC 33.1 g/dL (31.6-35.5); MEAN CORPUSCULAR VOLUME 93.5 fL (81.4-99.0); RED BLOOD CELL COUNT 3.87 M/uL (4.14-5.76); WHITE BLOOD CELL COUNT,WBC 3.9 K/uL (3.2-11.0)
[2022-09-30] MEDS: Aspirin 81 MG Tab.EC PO SCH (21:00)
[2022-09-30] MEDS: amLODIPine 5 MG Tab PO SCH (21:45)
[2022-10-01] MEDS ORDERED: Phenol/Sodium Phenolate Spray 180 ML Bottle MUCMEM PRN (01:07)
[2022-10-01] MEDS: Lactated Ringers 1,000 ML IV SCH ×2 (02:13→14:19)
[2022-10-01] MEDS: Magnesium Sulfate/Water 2 GM in Premix Bag 1 BAG IV SCH ×4 (02:53→20:45)
[2022-10-01] MEDS: Meropenem 500 MG in Sodium Chloride 0.9% 50 ML IV SCH ×4 (03:02→20:45)
[2022-10-01 04:54] LABS: HEMATOCRIT 32.3 % (38.4-49.7); HEMOGLOBIN 10.9 g/dL (12.9-16.9); MEAN CORPUSCULAR HEMOGLOBIN 31.1 pg (31.6-35.5); MEAN CORPUSCULAR HGB CONC 33.7 g/dL (31.6-35.5); MEAN CORPUSCULAR VOLUME 92.3 fL (81.4-99.0); RED BLOOD CELL COUNT 3.5 M/uL (4.14-5.76); WHITE BLOOD CELL COUNT,WBC 3.7 K/uL (3.2-11.0)
[2022-10-01] MEDS: Insulin Lispro 100 Unit/ML 3 ML KwikPen SUBCUT SCH ×4 (05:01→22:22)
[2022-10-01] MEDS: Acetaminophen 500 MG Tab PO SCH (05:02)
[2022-10-01] MEDS: Pantoprazole 40 MG Vial IVPUSH SCH (05:04)
[2022-10-01 05:37] LABS: A/G RATIO 0.7 (1.2-2.2); ALANINE AMINOTRANSFERASE,ALT 31 U/L (12-78); ALBUMIN 2.3 g/dL (3.4-5.0); ALKALINE PHOSPHATASE 61 U/L (46-116); ASPARTATE AMNIOTRANSFERASE,AST 14 U/L (15-37); BILIRUBIN TOTAL 0.5 mg/dL (0.2-1.0); BLOOD UREA NITROGEN,BUN 13 mg/dL (7-18); CALCIUM 8.6 mg/dL (8.5-10.1); CARBON DIOXIDE,CO2 32 mmol/L (21-32); CHLORIDE,CL 101 mmol/L (100-108); EST CRCL DRUG DOSING (CG) 65.99 mL/min; ESTIMATED GFR 75 mL/min (>60); GLUCOSE RANDOM 152 mg/dL (74-106); POTASSIUM,K 3.4 mmol/L (3.6-5.2); PRO B-TYPE NATRIUR PEPT,BNPPRO 467 pg/mL (5-450); PROTEIN TOTAL,TP 5.4 g/dL (6.4-8.2); SODIUM,NA 140 mmol/L (140-148)
[2022-10-01 05:39] LABS: ANION GAP 10.4 mmol/L (5.0-14.0)
[2022-10-01] MEDS ORDERED: Potassium Phosphates 3 mMole/ML 15 ML SDV IV ONE (07:46)
[2022-10-01] MEDS: Potassium Chloride 10 MEQ Cap.ER PO SCH ×2 (08:06→16:10)
[2022-10-01] MEDS: Hydrochlorothiazide 25 MG Tab PO SCH (08:06)
[2022-10-01] MEDS: metFORMIN 500 MG Tab PO SCH (08:06)
[2022-10-01] MEDS: Glimepiride 2 MG Tab PO SCH (08:06)
[2022-10-01] MEDS: Levothyroxine 50 MCG Tab PO SCH (08:06)
[2022-10-01] MEDS ORDERED: 50% Dextrose in Water 50 ML Syringe IV PRN (08:10)
[2022-10-01] MEDS ORDERED: Glucose Gel 15 GM in 37.5 GM Tube PO PRN (08:10)
[2022-10-01] MEDS: Pravastatin 20 MG Tab PO SCH (08:42)
[2022-10-01] MEDS: Acyclovir 200 MG Cap PO SCH ×2 (08:43→20:46)
[2022-10-01] MEDS: Fluticasone NASAL Spray 16 GM Bottle NASBOTH SCH (08:46)
[2022-10-01] MEDS: Acetaminophen 1,000 MG in Premix Bag 1 BAG IV SCH ×3 (09:30→22:20)
[2022-10-01] MEDS: Potassium Phos in 0.9 % NaCl 15 MMOL in Premix Bag 1 BAG IV SCH ×6 (09:55→16:11)
[2022-10-01] MEDS: MVI, Adult with Vitamin K 10 ML, Thiamine 200 MG, Zinc/Copper/Manganese/Selenium 1 ML i... IV SCH ×4 (15:49)
[2022-10-01] MEDS: amLODIPine 5 MG Tab PO SCH (20:45)
[2022-10-01] MEDS: Aspirin 81 MG Tab.EC PO SCH (20:45)
[2022-10-02] MEDS: Meropenem 500 MG in Sodium Chloride 0.9% 50 ML IV SCH ×4 (02:17→21:02)
[2022-10-02] MEDS: Magnesium Sulfate/Water 2 GM in Premix Bag 1 BAG IV SCH ×4 (02:17→20:55)
[2022-10-02] MEDS: Lactated Ringers 1,000 ML IV SCH ×2 (02:17→23:11)
[2022-10-02] MEDS: Insulin Lispro 100 Unit/ML 3 ML KwikPen SUBCUT SCH ×4 (04:10→22:37)
[2022-10-02] MEDS: Acetaminophen 1,000 MG in Premix Bag 1 BAG IV SCH (04:16)
[2022-10-02 04:22] LABS: HEMATOCRIT 29.2 % (38.4-49.7); HEMOGLOBIN 9.6 g/dL (12.9-16.9); MEAN CORPUSCULAR HEMOGLOBIN 30.2 pg (31.6-35.5); MEAN CORPUSCULAR HGB CONC 32.9 g/dL (31.6-35.5); MEAN CORPUSCULAR VOLUME 91.8 fL (81.4-99.0); RED BLOOD CELL COUNT 3.18 M/uL (4.14-5.76); WHITE BLOOD CELL COUNT,WBC 2.8 K/uL (3.2-11.0)
[2022-10-02 04:55] LABS: A/G RATIO 0.7 (1.2-2.2); ALANINE AMINOTRANSFERASE,ALT 23 U/L (12-78); ALBUMIN 1.9 g/dL (3.4-5.0); ALKALINE PHOSPHATASE 55 U/L (46-116); ANION GAP 9.5 mmol/L (5.0-14.0); ASPARTATE AMNIOTRANSFERASE,AST 14 U/L (15-37); BILIRUBIN TOTAL 0.4 mg/dL (0.2-1.0); BLOOD UREA NITROGEN,BUN 12 mg/dL (7-18); CALCIUM 8.1 mg/dL (8.5-10.1); CARBON DIOXIDE,CO2 30 mmol/L (21-32); CHLORIDE,CL 104 mmol/L (100-108); EST CRCL DRUG DOSING (CG) 65.99 mL/min; ESTIMATED GFR 75 mL/min (>60); GLUCOSE RANDOM 92 mg/dL (74-106); PHOSPHORUS 2.7 mg/dL (2.5-4.9); POTASSIUM,K 3.5 mmol/L (3.6-5.2); PRO B-TYPE NATRIUR PEPT,BNPPRO 752 pg/mL (5-450); PROTEIN TOTAL,TP 4.8 g/dL (6.4-8.2); SODIUM,NA 140 mmol/L (140-148)
[2022-10-02] MEDS: Pantoprazole 40 MG Vial IVPUSH SCH (05:37)
[2022-10-02] MEDS ORDERED: fentaNYL 100 MCG/2 ML SDV ONE (06:42)
[2022-10-02] MEDS ORDERED: Propofol 200 MG/20 ML SDV ONE (06:42)
[2022-10-02] MEDS ORDERED: Bupivacaine 0.5% 50 ML MDV ONE (07:06)
[2022-10-02] MEDS ORDERED: Lidocaine 1% with EPINEPHrine 1:100,000 50 ML MDV ONE (07:06)
[2022-10-02] MEDS ORDERED: Meropenem 500 MG SDV ONE (07:06)
[2022-10-02] MEDS: Levothyroxine 50 MCG Tab PO SCH (08:03)
[2022-10-02] MEDS: Potassium Chloride 10 MEQ Cap.ER PO SCH ×2 (08:04→17:19)
[2022-10-02] MEDS ORDERED: Cyanocobalamin (Vitamin B12) 1,000 MCG/ML SDV IM ONE ×2 (09:00→12:30)
[2022-10-02] MEDS: Potassium Chloride 10 MEQ in Premix Bag 1 BAG IV SCH ×4 (09:30→16:14)
[2022-10-02] MEDS: Fluticasone NASAL Spray 16 GM Bottle NASBOTH SCH (09:34)
[2022-10-02] MEDS: Bisacodyl 5 MG Tab PO SCH ×2 (13:25→21:04)
[2022-10-02] MEDS: Docusate Sodium 100 MG Cap PO SCH ×2 (13:26→21:04)
[2022-10-02] MEDS: Acyclovir 200 MG Cap PO SCH ×2 (13:28→21:06)
[2022-10-02] MEDS: Glimepiride 2 MG Tab PO SCH (13:32)
[2022-10-02] MEDS: Hydrochlorothiazide 25 MG Tab PO SCH (13:33)
[2022-10-02] MEDS: Sulfamethoxazole/Trimethoprim 800-160 MG Tab PO SCH (13:34)
[2022-10-02] MEDS: Pravastatin 20 MG Tab PO SCH (13:35)
[2022-10-02] MEDS: Acetaminophen 500 MG Tab PO SCH ×2 (16:00→22:48)
[2022-10-02] MEDS: amLODIPine 5 MG Tab PO SCH (21:04)
[2022-10-02] MEDS: Aspirin 81 MG Tab.EC PO SCH (21:04)
[2022-10-03] MEDS: Meropenem 500 MG in Sodium Chloride 0.9% 50 ML IV SCH ×4 (02:59→20:59)
[2022-10-03] MEDS: Magnesium Sulfate/Water 2 GM in Premix Bag 1 BAG IV SCH (03:00)
[2022-10-03 04:38] LABS: HEMATOCRIT 31.9 % (38.4-49.7); HEMOGLOBIN 10.8 g/dL (12.9-16.9); MEAN CORPUSCULAR HEMOGLOBIN 30.9 pg (31.6-35.5); MEAN CORPUSCULAR HGB CONC 33.9 g/dL (31.6-35.5); MEAN CORPUSCULAR VOLUME 91.1 fL (81.4-99.0); RED BLOOD CELL COUNT 3.5 M/uL (4.14-5.76); WHITE BLOOD CELL COUNT,WBC 3.1 K/uL (3.2-11.0)
[2022-10-03 04:56] LABS: A/G RATIO 0.6 (1.2-2.2); ALANINE AMINOTRANSFERASE,ALT 23 U/L (12-78); ALBUMIN 2.1 g/dL (3.4-5.0); ALKALINE PHOSPHATASE 63 U/L (46-116); ASPARTATE AMNIOTRANSFERASE,AST 24 U/L (15-37); BILIRUBIN TOTAL 0.5 mg/dL (0.2-1.0); BLOOD UREA NITROGEN,BUN 14 mg/dL (7-18); CALCIUM 8.3 mg/dL (8.5-10.1); CARBON DIOXIDE,CO2 26 mmol/L (21-32); CHLORIDE,CL 103 mmol/L (100-108); CREATININE 0.9 mg/dL (0.8-1.3); EST CRCL DRUG DOSING (CG) 73.13 mL/min; ESTIMATED GFR 85 mL/min (>60); GLUCOSE RANDOM 115 mg/dL (74-106); MAGNESIUM 2.8 mg/dL (1.8-2.4); PHOSPHORUS 3.3 mg/dL (2.5-4.9); POTASSIUM,K 4.3 mmol/L (3.6-5.2); PROTEIN TOTAL,TP 5.5 g/dL (6.4-8.2); SODIUM,NA 138 mmol/L (140-148)
[2022-10-03 05:18] LABS: ANION GAP 13.3 mmol/L (5.0-14.0)
[2022-10-03] MEDS: Insulin Lispro 100 Unit/ML 3 ML KwikPen SUBCUT SCH ×5 (06:15→21:02)
[2022-10-03] MEDS: Pantoprazole 40 MG Vial IVPUSH SCH (06:56)
[2022-10-03] MEDS: Acetaminophen 500 MG Tab PO SCH ×3 (06:58→22:58)
[2022-10-03] MEDS: Levothyroxine 50 MCG Tab PO SCH (07:01)
[2022-10-03] MEDS: Potassium Chloride 10 MEQ Cap.ER PO SCH ×2 (08:27→18:00)
[2022-10-03] MEDS: Bisacodyl 5 MG Tab PO SCH ×2 (08:28→21:02)
[2022-10-03] MEDS: Pravastatin 20 MG Tab PO SCH (08:29)
[2022-10-03] MEDS: Hydrochlorothiazide 25 MG Tab PO SCH (08:29)
[2022-10-03] MEDS: Acyclovir 200 MG Cap PO SCH ×2 (08:29→21:00)
[2022-10-03] MEDS: Fluticasone NASAL Spray 16 GM Bottle NASBOTH SCH (08:31)
[2022-10-03] MEDS: Docusate Sodium 100 MG Cap PO SCH ×2 (08:39→21:01)
[2022-10-03] MEDS: Glimepiride 2 MG Tab PO SCH (08:39)
[2022-10-03] MEDS ORDERED: HYDROmorphone 1 MG/ML Syringe IV ONE (09:00)
[2022-10-03] MEDS: Lactobacillus Rhamnosus GG (Probiotic) Cap PO SCH (10:07)
[2022-10-03] MEDS: Ciprofloxacin in D5W 400 MG in Premix Bag 1 BAG IV SCH ×4 (10:18→22:59)
[2022-10-03] MEDS: Lactated Ringers 1,000 ML IV SCH ×2 (10:31→23:22)
[2022-10-03] MEDS: amLODIPine 5 MG Tab PO SCH (21:00)
[2022-10-03] MEDS: Aspirin 81 MG Tab.EC PO SCH (21:01)
[2022-10-04] MEDS: Meropenem 500 MG in Sodium Chloride 0.9% 50 ML IV SCH ×4 (03:30→20:51)
[2022-10-04 04:30] LABS: HEMATOCRIT 27.5 % (38.4-49.7); HEMOGLOBIN 9.2 g/dL (12.9-16.9); MEAN CORPUSCULAR HEMOGLOBIN 30.7 pg (31.6-35.5); MEAN CORPUSCULAR HGB CONC 33.5 g/dL (31.6-35.5); MEAN CORPUSCULAR VOLUME 91.7 fL (81.4-99.0); PLATELET COUNT,PLT 193 K/uL (130-375); WHITE BLOOD CELL COUNT,WBC 3.2 K/uL (3.2-11.0)
[2022-10-04 04:56] LABS: A/G RATIO 0.6 (1.2-2.2); ALANINE AMINOTRANSFERASE,ALT 24 U/L (12-78); ALBUMIN 1.8 g/dL (3.4-5.0); ALKALINE PHOSPHATASE 56 U/L (46-116); ASPARTATE AMNIOTRANSFERASE,AST 20 U/L (15-37); BILIRUBIN TOTAL 0.3 mg/dL (0.2-1.0); BLOOD UREA NITROGEN,BUN 13 mg/dL (7-18); CARBON DIOXIDE,CO2 24 mmol/L (21-32); CHLORIDE,CL 108 mmol/L (100-108); CREATININE 0.9 mg/dL (0.8-1.3); EST CRCL DRUG DOSING (CG) 73.13 mL/min; ESTIMATED GFR 85 mL/min (>60); GLUCOSE RANDOM 75 mg/dL (74-106); PHOSPHORUS 3.6 mg/dL (2.5-4.9); PRO B-TYPE NATRIUR PEPT,BNPPRO 811 pg/mL (5-450); PROTEIN TOTAL,TP 4.6 g/dL (6.4-8.2); SODIUM,NA 141 mmol/L (140-148)
[2022-10-04 05:07] LABS: ANION GAP 11.9 mmol/L (5.0-14.0); POTASSIUM,K 2.9 mmol/L (3.6-5.2)
[2022-10-04 05:27] LABS: BAND ABSOLUTE MAN 0.26 K/uL; BAND PERCENT MAN 8 % (5-11); EOSINOPHILS ABSOLUTE MAN 0.22 K/uL (0.00-0.40); EOSINOPHILS PERCENT MAN 7 % (2-4); LYMPHOCYTES ABSOLUTE MAN 0.61 K/uL (0.8-3.3); LYMPHOCYTES PERCENT MAN 19 % (24-44); MONOCYTES ABSOLUTE MAN 0.32 K/uL (0.20-0.90); MONOCYTES PERCENT MAN 10 % (2-6); NEUTROPHILS ABSOLUTE MAN 1.79 K/uL (1.0-7.6); SEG NEUTROPHILS PERCENT MAN 56 % (36-66)
[2022-10-04] MEDS: Pantoprazole 40 MG Vial IVPUSH SCH (05:46)
[2022-10-04] MEDS: Acetaminophen 500 MG Tab PO SCH ×4 (06:52→22:12)
[2022-10-04] MEDS: Levothyroxine 50 MCG Tab PO SCH (07:58)
[2022-10-04] MEDS: Potassium Chloride 10 MEQ Cap.ER PO SCH ×2 (07:58→17:22)
[2022-10-04] MEDS: Insulin Lispro 100 Unit/ML 3 ML KwikPen SUBCUT SCH ×4 (08:14→21:01)
[2022-10-04] MEDS: Lactated Ringers 1,000 ML IV SCH ×2 (10:09→11:23)
[2022-10-04] MEDS: Linezolid 600 MG in Premix Bag 1 BAG IV SCH ×2 (10:26→22:22)
[2022-10-04] MEDS: Glimepiride 2 MG Tab PO SCH (10:30)
[2022-10-04] MEDS: Pravastatin 20 MG Tab PO SCH (10:30)
[2022-10-04] MEDS: Lactobacillus Rhamnosus GG (Probiotic) Cap PO SCH (10:30)
[2022-10-04] MEDS: Hydrochlorothiazide 25 MG Tab PO SCH (10:30)
[2022-10-04] MEDS: Acyclovir 200 MG Cap PO SCH ×2 (10:30→20:52)
[2022-10-04] MEDS: Fluticasone NASAL Spray 16 GM Bottle NASBOTH SCH (10:30)
[2022-10-04] MEDS: Docusate Sodium 100 MG Cap PO SCH ×2 (10:40→20:47)
[2022-10-04] MEDS: metFORMIN 500 MG Tab PO SCH (17:22)
[2022-10-04] MEDS: Aspirin 81 MG Tab.EC PO SCH (20:52)
[2022-10-04] MEDS: amLODIPine 5 MG Tab PO SCH (20:52)
[2022-10-05] MEDS: Lactated Ringers 1,000 ML IV SCH ×2 (00:56→10:21)
[2022-10-05] MEDS: Meropenem 500 MG in Sodium Chloride 0.9% 50 ML IV SCH ×4 (03:43→21:18)
[2022-10-05 04:32] LABS: BASOPHILS ABSOLUTE AUTO 0.04 K/uL (0.00-0.10); BASOPHILS PERCENT AUTO 1.4 % (0.1-1.3); EOSINOPHILS ABSOLUTE AUTO 0.29 K/uL (0.00-0.40); EOSINOPHILS PERCENT AUTO 10.1 % (0.0-5.4); HEMATOCRIT 27.9 % (38.4-49.7); IMMATURE GRAN ABSOLUTE AUTO 0.03 K/uL (0.00-0.23); LYMPHOCYTES ABSOLUTE AUTO 0.65 K/uL (0.8-3.3); LYMPHOCYTES PERCENT AUTO 22.7 % (11.4-47.7); MEAN CORPUSCULAR HEMOGLOBIN 29.9 pg (31.6-35.5); MEAN CORPUSCULAR HGB CONC 32.3 g/dL (31.6-35.5); MEAN CORPUSCULAR VOLUME 92.7 fL (81.4-99.0); MONOCYTES ABSOLUTE AUTO 0.32 K/uL (0.20-0.90); MONOCYTES PERCENT AUTO 11.2 % (3.3-12.6); NEUTROPHILS ABSOLUTE AUTO 1.53 K/uL (1.0-7.6); NEUTROPHILS PERCENT AUTO 53.6 % (40.0-78.1); PLATELET COUNT,PLT 178 K/uL (130-375); RED BLOOD CELL COUNT 3.01 M/uL (4.14-5.76); WHITE BLOOD CELL COUNT,WBC 2.9 K/uL (3.2-11.0)
[2022-10-05 04:50] LABS: A/G RATIO 0.7 (1.2-2.2); ALANINE AMINOTRANSFERASE,ALT 23 U/L (12-78); ALBUMIN 1.9 g/dL (3.4-5.0); ALKALINE PHOSPHATASE 58 U/L (46-116); ASPARTATE AMNIOTRANSFERASE,AST 18 U/L (15-37); BILIRUBIN TOTAL 0.3 mg/dL (0.2-1.0); BLOOD UREA NITROGEN,BUN 10 mg/dL (7-18); CALCIUM 7.9 mg/dL (8.5-10.1); CARBON DIOXIDE,CO2 25 mmol/L (21-32); CHLORIDE,CL 109 mmol/L (100-108); EST CRCL DRUG DOSING (CG) 65.82 mL/min; ESTIMATED GFR 75 mL/min (>60); GLUCOSE RANDOM 88 mg/dL (74-106); MAGNESIUM 1.5 mg/dL (1.8-2.4); PHOSPHORUS 3.8 mg/dL (2.5-4.9); POTASSIUM,K 3.2 mmol/L (3.6-5.2); PROTEIN TOTAL,TP 4.6 g/dL (6.4-8.2); SODIUM,NA 142 mmol/L (140-148)
[2022-10-05 04:52] LABS: ANION GAP 11.2 mmol/L (5.0-14.0)
[2022-10-05] MEDS: Pantoprazole 40 MG Vial IVPUSH SCH (05:39)
[2022-10-05] MEDS: Acetaminophen 500 MG Tab PO SCH ×3 (06:00→21:40)
[2022-10-05] MEDS ORDERED: Potassium Phosphates 3 mMole/ML 15 ML SDV IV ONE (07:23)
[2022-10-05] MEDS: Levothyroxine 50 MCG Tab PO SCH (07:58)
[2022-10-05] MEDS: metFORMIN 500 MG Tab PO SCH ×2 (07:59→17:08)
[2022-10-05] MEDS: Acyclovir 200 MG Cap PO SCH ×2 (08:01→21:29)
[2022-10-05] MEDS: Lactobacillus Rhamnosus GG (Probiotic) Cap PO SCH (08:02)
[2022-10-05] MEDS: Potassium Chloride 10 MEQ Cap.ER PO SCH ×2 (08:02→17:08)
[2022-10-05] MEDS: Hydrochlorothiazide 25 MG Tab PO SCH (08:06)
[2022-10-05] MEDS: Pravastatin 20 MG Tab PO SCH (08:06)
[2022-10-05] MEDS: Magnesium Sulfate/Water 2 GM/50 ML BAG IV SCH ×3 (08:55→21:14)
[2022-10-05] MEDS ORDERED: Potassium Chloride 20 MEQ Tab.ER PO SCH (09:00)
[2022-10-05] MEDS: Insulin Lispro 100 Unit/ML 3 ML KwikPen SUBCUT SCH ×4 (09:08→21:16)
[2022-10-05] MEDS: Glimepiride 2 MG Tab PO SCH (09:09)
[2022-10-05] MEDS: Fluticasone NASAL Spray 16 GM Bottle NASBOTH SCH (09:09)
[2022-10-05] MEDS: Potassium Phos in 0.9 % NaCl 15 MMOL in Premix Bag 1 BAG IV SCH ×4 (09:11→14:11)
[2022-10-05] MEDS: Docusate Sodium 100 MG Cap PO SCH ×2 (09:20→21:17)
[2022-10-05] MEDS: Linezolid 600 MG in Premix Bag 1 BAG IV SCH (10:14)
[2022-10-05] MEDS ORDERED: Albumin Human 25 GM in Premix Bag 1 BAG IV SCH ×2 (11:30→18:00)
[2022-10-05] MEDS ORDERED: Sodium Chloride 0.9% 1,000 ML IV SCH (13:15)
[2022-10-05] MEDS ORDERED: Potassium Phosphates 15 MMOLE in Sodium Chloride 0.9% 250 ML IV ONE (15:30)
[2022-10-05] MEDS: Aspirin 81 MG Tab.EC PO SCH (21:18)
[2022-10-05] MEDS: amLODIPine 5 MG Tab PO SCH (21:19)
[2022-10-06] MEDS: Linezolid 600 MG in Premix Bag 1 BAG IV SCH (00:02)
[2022-10-06] MEDS: Magnesium Sulfate/Water 2 GM/50 ML BAG IV SCH ×2 (02:19→08:09)
[2022-10-06] MEDS: Meropenem 500 MG in Sodium Chloride 0.9% 50 ML IV SCH ×2 (02:20→08:33)
[2022-10-06 04:12] LABS: HEMOGLOBIN 8.7 g/dL (12.9-16.9); MEAN CORPUSCULAR HEMOGLOBIN 30.4 pg (31.6-35.5); MEAN CORPUSCULAR HGB CONC 32.2 g/dL (31.6-35.5); MEAN CORPUSCULAR VOLUME 94.4 fL (81.4-99.0); RED BLOOD CELL COUNT 2.86 M/uL (4.14-5.76); WHITE BLOOD CELL COUNT,WBC 2.8 K/uL (3.2-11.0)
[2022-10-06 04:39] LABS: ALANINE AMINOTRANSFERASE,ALT 24 U/L (12-78); ALBUMIN 2.4 g/dL (3.4-5.0); ALKALINE PHOSPHATASE 57 U/L (46-116); ASPARTATE AMNIOTRANSFERASE,AST 14 U/L (15-37); BILIRUBIN TOTAL 0.3 mg/dL (0.2-1.0); BLOOD UREA NITROGEN,BUN 10 mg/dL (7-18); CALCIUM 7.9 mg/dL (8.5-10.1); CARBON DIOXIDE,CO2 26 mmol/L (21-32); CHLORIDE,CL 109 mmol/L (100-108); CREATININE 0.9 mg/dL (0.8-1.3); EST CRCL DRUG DOSING (CG) 73.13 mL/min; ESTIMATED GFR 85 mL/min (>60); GLUCOSE RANDOM 92 mg/dL (74-106); PHOSPHORUS 3.9 mg/dL (2.5-4.9); POTASSIUM,K 3.7 mmol/L (3.6-5.2); PRO B-TYPE NATRIUR PEPT,BNPPRO 699 pg/mL (5-450); PROTEIN TOTAL,TP 4.9 g/dL (6.4-8.2); SODIUM,NA 143 mmol/L (140-148)
[2022-10-06 04:45] LABS: ANION GAP 11.7 mmol/L (5.0-14.0)
[2022-10-06] MEDS: Pantoprazole 40 MG Vial IVPUSH SCH (05:38)
[2022-10-06] MEDS: Acetaminophen 500 MG Tab PO SCH (05:49)
[2022-10-06] MEDS: Insulin Lispro 100 Unit/ML 3 ML KwikPen SUBCUT SCH (07:56)
[2022-10-06] MEDS: Levothyroxine 50 MCG Tab PO SCH (08:08)
[2022-10-06] MEDS: metFORMIN 500 MG Tab PO SCH (08:09)
[2022-10-06] MEDS: Docusate Sodium 100 MG Cap PO SCH (08:11)
[2022-10-06] MEDS: Glimepiride 2 MG Tab PO SCH (08:11)
[2022-10-06] MEDS: Lactobacillus Rhamnosus GG (Probiotic) Cap PO SCH (08:11)
[2022-10-06] MEDS: Potassium Chloride 10 MEQ Cap.ER PO SCH (08:11)
[2022-10-06] MEDS: Fluticasone NASAL Spray 16 GM Bottle NASBOTH SCH (08:12)
[2022-10-06] MEDS: Pravastatin 20 MG Tab PO SCH (08:13)
[2022-10-06] MEDS: Acyclovir 200 MG Cap PO SCH (08:13)
[2022-10-06] MEDS: Hydrochlorothiazide 25 MG Tab PO SCH (08:31)
== END 2022-10-06 11:05 | disposition home health service (06) | DRG 329 ==
LOC: JP.ED 20:00 → JP.SDS 09-30 00:22 → JP.ICU 09-30 03:48
PROVIDERS: ADMIT Surgery; ATTEND Physician Assistant Medical
PROC: 0DT80ZZ Resection of Small Intestine, Open Approach (ICD-10-PCS; principal; 2022-09-30)
PROC: 0D988ZZ Drainage of Small Intestine, Via Natural or Artificial Opening Endoscopic (ICD-10-PCS; 2022-09-30)
PROC: 0W9G0ZZ Drainage of Peritoneal Cavity, Open Approach (ICD-10-PCS; 2022-09-30)
PROC: 0D9670Z Drainage of Stomach with Drainage Device, Via Natural or Artificial Opening (ICD-10-PCS; 2022-09-30)
PROC: 0T9B70Z Drainage of Bladder with Drainage Device, Via Natural or Artificial Opening (ICD-10-PCS; 2022-09-30)
PROC: 3E0M05Z Introduction of Adhesion Barrier into Peritoneal Cavity, Open Approach (ICD-10-PCS; 2022-09-30)
DX: K57.00 Diverticulitis of small intestine with perforation and abscess without bleeding (principal); K55.019 Acute (reversible) ischemia of small intestine, extent unspecified; K65.0 Generalized (acute) peritonitis; C90.00 Multiple myeloma not having achieved remission; I12.9 Hypertensive chronic kidney disease with stage 1 through stage 4 chronic kidney disease, or unspecified chronic kidney disease; E11.22 Type 2 diabetes mellitus with diabetic chronic kidney disease; N18.30 Chronic kidney disease, stage 3 unspecified; R00.1 Bradycardia, unspecified; D63.1 Anemia in chronic kidney disease; E03.9 Hypothyroidism, unspecified; Z90.49 Acquired absence of other specified parts of digestive tract; Z79.82 Long term (current) use of aspirin; Z79.01 Long term (current) use of anticoagulants; Z79.84 Long term (current) use of oral hypoglycemic drugs; Z79.899 Other long term (current) drug therapy; Z97.3 Presence of spectacles and contact lenses; Z98.890 Other specified postprocedural states; Z87.891 Personal history of nicotine dependence; Z20.822 Contact with and (suspected) exposure to COVID-19; Z99.81 Dependence on supplemental oxygen
CPT/HCPCS: 36415; 51702; 71045; 71045-26; 74018; 74018-26; 74177; 80053; 82947; 83605; 83615; 83735; 83880; 84100; 84484; 85025; 85027; 86140; 87070; 87075; 87077; 87186; 87205; 88307; 93005; 93010; 96365; 99223; 99232; 99285; 99285-25; A9270-GY; C9113; J0131; J0171; J0330; J0456; J0744; J1100; J1170; J1815; J2020; J2185; J2405; J2543; J2704; J2710; J2795; J3010; J3411; J3420; J3475; J3480; J3490; J7030; J7050; J7120; P9047; Q9967; U0002

== ENCOUNTER 2022-12-24 08:24 | Day surgery (SDC) | payer MEDICARE, BC ==
[2022-12-24] MEDS ORDERED: Sodium Chloride 0.9% 10 ML Syringe FLUSH SCH (08:45)
== END 2022-12-24 10:15 | disposition home or self-care (01) ==
LOC: JP.SDS 08:24
PROVIDERS: ATTEND Ophthalmology
DX: H26.9 Unspecified cataract (principal); I12.9 Hypertensive chronic kidney disease with stage 1 through stage 4 chronic kidney disease, or unspecified chronic kidney disease; N18.9 Chronic kidney disease, unspecified; E11.22 Type 2 diabetes mellitus with diabetic chronic kidney disease; E78.00 Pure hypercholesterolemia, unspecified; Z86.718 Personal history of other venous thrombosis and embolism
CPT/HCPCS: V2632

== ENCOUNTER 2023-01-07 06:48 | Day surgery (SDC) | payer MEDICARE, BC ==
[2023-01-07] MEDS ORDERED: Sodium Chloride 0.9% 10 ML Syringe FLUSH PRN (08:30)
== END 2023-01-07 09:01 | disposition home or self-care (01) ==
LOC: JP.SDS 06:48
PROVIDERS: ATTEND Ophthalmology
DX: E11.36 Type 2 diabetes mellitus with diabetic cataract (principal); H26.9 Unspecified cataract; E78.5 Hyperlipidemia, unspecified; E11.22 Type 2 diabetes mellitus with diabetic chronic kidney disease; I12.9 Hypertensive chronic kidney disease with stage 1 through stage 4 chronic kidney disease, or unspecified chronic kidney disease; N18.30 Chronic kidney disease, stage 3 unspecified; E03.9 Hypothyroidism, unspecified; Z86.718 Personal history of other venous thrombosis and embolism
CPT/HCPCS: 66984; J3490

== ENCOUNTER 2023-04-17 17:20 | Emergency (ER) | payer MEDICARE, BC ==
[2023-04-17] MEDS ORDERED: Sodium Chloride 0.9% 1,000 ML IV ONE (19:05)
[2023-04-17 19:15] LABS: BASOPHILS PERCENT AUTO 0.1 % (0.1-1.3); EOSINOPHILS PERCENT AUTO 0.1 % (0.0-5.4); HEMATOCRIT 35.2 % (38.4-49.7); HEMOGLOBIN 11.9 g/dL (12.9-16.9); IMMATURE GRAN PERCENT AUTO 0.3 % (0.0-0.7); LYMPHOCYTES ABSOLUTE AUTO 0.37 K/uL (0.8-3.3); LYMPHOCYTES PERCENT AUTO 5.4 % (11.4-47.7); MEAN CORPUSCULAR HGB CONC 33.8 g/dL (31.6-35.5); MEAN CORPUSCULAR VOLUME 88.7 fL (81.4-99.0); MONOCYTES ABSOLUTE AUTO 0.64 K/uL (0.20-0.90); MONOCYTES PERCENT AUTO 9.3 % (3.3-12.6); NEUTROPHILS ABSOLUTE AUTO 5.85 K/uL (1.0-7.6); NEUTROPHILS PERCENT AUTO 84.8 % (40.0-78.1); PLATELET COUNT,PLT 148 K/uL (130-375); RED BLOOD CELL COUNT 3.97 M/uL (4.14-5.76); WHITE BLOOD CELL COUNT,WBC 6.9 K/uL (3.2-11.0)
[2023-04-17 19:16] LABS: BASOPHILS ABSOLUTE AUTO 0.01 K/uL (0.00-0.10); EOSINOPHILS ABSOLUTE AUTO 0.01 K/uL (0.00-0.40); IMMATURE GRAN ABSOLUTE AUTO 0.02 K/uL (0.00-0.23)
[2023-04-17 19:36] LABS: A/G RATIO 0.8 (1.2-2.2); ALANINE AMINOTRANSFERASE,ALT 55 U/L (12-78); ALBUMIN 2.7 g/dL (3.4-5.0); ALKALINE PHOSPHATASE 122 U/L (46-116); ANION GAP 10.2 mmol/L (5.0-14.0); ASPARTATE AMNIOTRANSFERASE,AST 39 U/L (15-37); BILIRUBIN TOTAL 1.3 mg/dL (0.2-1.0); BLOOD UREA NITROGEN,BUN 17 mg/dL (7-18); CALCIUM 8.1 mg/dL (8.5-10.1); CARBON DIOXIDE,CO2 30 mmol/L (21-32); CHLORIDE,CL 100 mmol/L (100-108); CREATININE 1.1 mg/dL (0.8-1.3); EST CRCL DRUG DOSING (CG) 60.81 mL/min; ESTIMATED GFR 67 mL/min (>60); GLUCOSE RANDOM 142 mg/dL (74-106); POTASSIUM,K 3.2 mmol/L (3.6-5.2); SODIUM,NA 137 mmol/L (140-148)
[2023-04-17 20:01] LABS: INFLUENZA A NAA NEGATIVE (NEGATIVE); INFLUENZA B NAA NEGATIVE (NEGATIVE); RESPIRATORY SYNCYTIAL VIR NAA NEGATIVE (NEGATIVE)
[2023-04-17 20:11] LABS: CORONAVIRUS COVID-19 NAA POSITIVE (NEGATIVE)
== END 2023-04-17 21:39 | disposition home or self-care (01) ==
LOC: JP.ED 17:20
DX: U07.1 COVID-19 (principal); E86.0 Dehydration; E11.9 Type 2 diabetes mellitus without complications; I10 Essential (primary) hypertension; E03.9 Hypothyroidism, unspecified; Z79.82 Long term (current) use of aspirin; Z79.84 Long term (current) use of oral hypoglycemic drugs; Z79.899 Other long term (current) drug therapy
CPT/HCPCS: 0241U; 36415; 71046; 80053; 83605; 85025; 86140; 96360; 99284; J7030

== ENCOUNTER 2023-11-09 08:49 | Day surgery (SDC) | payer MEDICARE, BC ==
[2023-11-09] MEDS: Sodium Chloride 0.9% 1,000 ML IV SCH (09:43)
[2023-11-09] MEDS ORDERED: fentaNYL 50 MCG/ML SDV ONE (10:02)
[2023-11-09] MEDS ORDERED: Propofol 200 MG/20 ML SDV ONE (10:02)
== END 2023-11-09 13:53 | disposition home or self-care (01) ==
LOC: JP.SDS 08:49
PROVIDERS: ATTEND Surgery
DX: K57.30 Diverticulosis of large intestine without perforation or abscess without bleeding (principal)
CPT/HCPCS: 45378; J2704; J3010; J7030